=== PATIENT | female | born 1945 | race Caucasian/White ===

== ENCOUNTER → 2016-10-02 | Outpatient (CLI) | payer OTHER ==
--- NOTE | 2016-10-02 13:52 | MA ---
Screening Digital Mammogram With iCAD Analysis Clinical Indications: Routine screening. Technique: Standard cephalocaudal projections are obtained. Digital breast tomosynthesis was performe d in the MLO projection with reconstruction at 1.0 mm slice thickness and composite MLO views reconst ructed. This examination is processed by the iCAD computer aided detection system. Comparison: November 2011 and September 2010. Breast density: Type C: Heterogeneously dense. Findings: CAD was reviewed. No masses, suspicious calcifications or secondary signs of malignancy are seen. There has been no significant change in the appearance of either breast. Impression: Negative mammogram. BI-RADS 1. Recommendation: Routine mammographic screening in one year as long as physical examination is negativ e in this patient with heterogeneously dense breast parenchyma. [facility] will send a result letter to the patient. Negative mammography should not preclude additional workup of a clinically suspicious finding. The patient's information is entered into a reminder system with a target due date for her next mammo gram.
== END ==
LOC: FIMAGING 09:23
DX: Z12.31 Encounter for screening mammogram for malignant neoplasm of breast (principal)
CPT/HCPCS: G0202

== ENCOUNTER 2017-07-11 09:40 | Day surgery (SDC) | payer OTHER ==
[2017-07-11] MEDS ORDERED: ASPIRIN EC 325 MG TAB PO ONE (09:44)
[2017-07-11] MEDS ORDERED: FAMOTIDINE 20 MG/NACL 50 ML IV ONE (09:44)
[2017-07-11] MEDS ORDERED: methylPREDNISolone SOD SUCC 125 MG/2 ML VIAL IVP ONE (09:44)
[2017-07-11] MEDS ORDERED: NS 1,000 ML IV ONE (09:44)
[2017-07-11] MEDS ORDERED: DIAZEPAM 5 MG TAB PO ONE (09:44)
--- NOTE | 2017-07-11 10:05 | CPEKG ---
Heart Rate: 81 RR Interval: 741 P-R Interval: 152 QRSD Interval: 76 QT Interval: 372 QTC Interval: 432 P [place]: 4 QRS [place]: 53 T Wave [place]: 8 EKG Severity - NORMAL ECG - EKG Impression: SINUS RHYTHM Electronically Signed By: Guanakito Prado 11-Jul-2017 17:37:47
--- NOTE | 2017-07-11 10:05 | CPEKG ---
Heart Rate: 81 RR Interval: 741 P-R Interval: 152 QRSD Interval: 76 QT Interval: 372 QTC Interval: 432 P [place]: 4 QRS [place]: 53 T Wave [place]: 8 EKG Severity - NORMAL ECG - EKG Impression: SINUS RHYTHM Electronically Signed By: Guanakito Prado 11-Jul-2017 17:37:47
[2017-07-11 10:18] LABS: PLATELET COUNT 243 10^3/uL (150-400)
[2017-07-11 10:31] LABS: INR 0.96 (0.83-1.16); PROTIME(PATIENT) 12.7 SEC (12.0-15.0)
[2017-07-11] MEDS ORDERED: VERAPAMIL 5 MG/2 ML VIAL ONE (11:55)
[2017-07-11] MEDS ORDERED: HEPARIN 10,000 UNIT/10 ML MDV ONE (11:55)
[2017-07-11] MEDS ORDERED: MIDAZOLAM 2 MG/2 ML VIAL ONE ×2 (11:55)
[2017-07-11] MEDS ORDERED: fentaNYL 100 MCG/2 ML INJ ONE (11:55)
[2017-07-11] MEDS ORDERED: LIDOCAINE 1% 300 MG/30 ML SDV ONE (11:55)
[2017-07-11] MEDS ORDERED: IOPAMIDOL (ISOVUE-370) 150 ML BTL IV ONE ×2 (11:56→13:01)
--- NOTE | 2017-07-11 12:16 | PDPROPOC ---
Sedation Plan of Care Sedation Plan of Care: vital signs stable, mental status noted, patient educated of risks, benefits, alternatives, patient can tolerate sedation ASA Classification: ASA 2 Planned drugs: fentanyl, midazolam Mallampati Score: Class 2 Mallampati Reference Image: Patient passed 3-3-2 rule?: Yes
--- NOTE | 2017-07-11 12:16 | PDHPUP ---
History & Physical Update H&P update statement: This history and physical update is based on an assessment of the patient which was completed after admission or registration (within 24 hours), but prior to the surgery/procedure. H&P update: H&P reviewed & patient examined, no change in patient's condition since H&P completed
[2017-07-11] MEDS ORDERED: ONDANSETRON 4 MG/2 ML VIAL IVP PRN (13:15)
[2017-07-11] MEDS ORDERED: ATROPINE SULFATE 1 MG/10 ML SYR IVP PRN (13:15)
--- NOTE | 2017-07-11 13:29 | PDDXCAT ---
Diagnostic Cath Note - . 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 New onset angina currently [place] Cardiovascular Society class 2/3.) - Procedure Access: right wrist Procedure: left heart catheterization, coronary angiography - Materials Left Heart Cath size: 4F Left Heart Cath materials: JL3.5, JR4.0 - Findings-Left Heart Catheterization LM: Large caliber vessel. Appropriate bifurcation into the left anterior descending and circumflex distributions. Angiographically free of disease. LAD: Large caliber transapical vessel. 2 principal diagonal branches. Long segment that was previously stented involving the proximal and mid vessel. 50% region of in stent restenoses between the 1st and 2nd diagonal branches. 60% long area of disease involving the proximal 1st diagonal branch. LCX: Moderate caliber. Extensively stented in the mid segment. Single bifurcating obtuse marginal branch. 80% lesion noted in the inferior branch of the 1st obtuse marginal. RCA: PDA lesion. Dominant vessel. The PDA is clearly identified. Previously stented in the mid segment. 80% lesion in the mid vessel proximal to the previously stented segment. 70% mid LVEF: Greater than 70%. End-diastolic pressure of 18 mm Hg. Complications: None. Estimated blood loss: <50ml Closure method: TR Band Assessment: 1. Known coronary artery disease with previous stenting of all 3 vascular territories. 2. Current angiogram demonstrating diffuse epicardial coronary disease not involving the proximal LAD associated with preserved left ventricular systolic function. 3. [place] Cardiovascular Society class 2/3 angina. Plan: She will be trialed on medical therapy to include long-acting taking nitrates and potentially ranolazine. Will consider changing from atenolol over to a longer-acting beta emiliano. Depending on clinical course consideration could be given to surgical revascularization. Intervention: None.
[2017-07-11] MEDS ORDERED: ISOSORBIDE DINITRATE 10 MG TAB PO SCH (15:00)
== END 2017-07-11 18:45 | disposition home or self-care (01) ==
LOC: FCATH 09:40
PROVIDERS: ATTEND Internal Medicine Cardiovascular Disease
DX: I25.119 Atherosclerotic heart disease of native coronary artery with unspecified angina pectoris (principal); I10 Essential (primary) hypertension; E78.00 Pure hypercholesterolemia, unspecified; E78.5 Hyperlipidemia, unspecified; F32.9 Major depressive disorder, single episode, unspecified; Z95.5 Presence of coronary angioplasty implant and graft; Z91.041 Radiographic dye allergy status; Z85.118 Personal history of other malignant neoplasm of bronchus and lung
CPT/HCPCS: 93005; 93458; C1769; J1200; J1644; J2250; J3010; Q9967

== ENCOUNTER 2017-11-03 18:16 | Inpatient (IN) | payer OTHER ==
--- NOTE | 2017-11-03 19:06 | EDPHY ---
H & P Time Seen by Provider: 11/03/17 18:54 HPI/ROS: CHIEF COMPLAINT: Right ankle redness for 1 day HISTORY OF PRESENT ILLNESS: History old orthopedic injury in the right ankle. Complains of swelling in the right ankle for 2 days and then redness today. She tells me she thinks it is"a ligament"however she has had previous DVT, has diabetes, says she is having difficulty walking because of pain in that ankle. No recent injury or trauma. No chest pain or shortness of breath. REVIEW OF SYSTEMS: Eye: no change in vision ENT: no sore throat Cardiac: no chest pain or syncope Pulmonary: Not short of breath but still has a little residual cough from her influenza 2 months ago. Abdomen: no vomiting, diarrhea, abdominal pain Musculoskeletal: Diffuse myalgias especially in her back sensory influenza 2 months ago. That is really unchanged. Skin: Rash on her trunk which is redness been there for 2 years, unchanged Neuro: Patient has a chronic headaches since her influenza 2 months ago. Constitutional: no fever : no urinary symptoms A comprehensive 10 point review of systems is otherwise negative aside from elements mentioned in the history of present illness. PAST MEDICAL HISTORY: Includes coronary disease, diabetes, history of lung cancer, patient says she has had a DVT before in the right leg Social history: Here with son and General Appearance: Alert and conversant, cooperative. Eyes: No scleral icterus. ENT, Mouth: Normal mucous membranes. Respiratory: Normal respiratory effort, breath sounds equal, lungs are clear to auscultation. Cardiovascular: Regular rate and rhythm. Gastrointestinal: Abdomen is soft and non tender. Neurological: Alert, face symmetric, normal motor and sensory in extremities. Skin: Warmth and redness on the right ankle inferior and distal to the medial malleolus. No blisters. No lymphangitis. No crepitus. She does have a rash which looks urticarial and red on her trunk which she says has been there for 2 years. Musculoskeletal: No calf tenderness either side. I can range her right ankle. She has tenderness near the right medial malleolus. Psychiatric: Not agitated. Emergency Department course/MDM: CBC, x-ray, ultrasound. Sedimentation rate and CRP. 2021: Results discussed, elevated CRP and sedimentation rate, likely right ankle cellulitis. Admission for hospitalization and IV antibiotics in a patient who can't walk on it, inflammatory markers elevated, has peripheral vascular disease, and diabetes making her high risk candidate for outpatient therapy. Does not have SIRS criteria. IV Ancef 2 g. Smoking Status: Never smoked Constitutional: Initial Vital Signs Temperature (C) 36.5 C 11/03/17 18:34 Heart Rate 92 11/03/17 18:34 Respiratory Rate 18 11/03/17 18:34 Blood Pressure 152/82 H 11/03/17 18:34 O2 Sat (%) 93 11/03/17 18:34 O2 Delivery Mode Room Air Allergies/Adverse Reactions: aspirin Allergy (Verified 11/03/17 18:34) Rash Tetanus Vaccines and Toxoid [Tetanus Vaccines & Toxoid] Allergy (Verified 18:34) Home Medications: Medication Instructions Recorded Amitriptyline HCl [Elavil 100 MG 100 mg PO HS PRN 07/11/17 (*)] Atenolol [Tenormin 100 mg (*)] 100 mg PO HS 07/11/17 Calcium Carbonate [Oyster Shell 500 mg PO HS 07/11/17 Calcium 500 mg (*)] Cholecalciferol Vit D3 [Vitamin D3 1,000 units PO HS 07/11/17 (*)] Lisinopril [Zestril 20 mg (*)] 20 mg PO HS 07/11/17 Temazepam [Restoril 15 MG (*)] 15 mg PO HSPRN PRN 07/11/17 amLODIPine BESYLATE [Norvasc 10 mg 10 mg PO HS 07/11/17 (*)] Baclofen [Baclofen 10 mg (*)] 10 mg PO TID 11/03/17 Clopidogrel Bisulfate [Plavix (*)] 75 mg PO DAILY 11/03/17 Isosorbide Dinitrate [Isosorbide 20 mg PO BIDNITRATE 11/03/17 Dinitrate 20 mg (*)] Medical Decision Making - Diagnostics Imaging Results: Imaging Impressions Ankle X-Ray 11/03/17 19:03 Impression: Negative for acute fracture. Extremity Venous Study 11/03/17 19:03 Impression: No evidence of deep vein thrombosis in the right lower extremity. Results called and discussed with KRIS NEWMAN M.D. on 11/03/2017 at 20:26 X-ray personally interpreted shows old medial malleolar chip, otherwise nothing acute Normal right leg ultrasound per Dr. Jackman at 8:25 p.m. Imaging: Discussed imaging studies w/ banquet server on call Radiologist, I viewed and interpreted images myself Differential Diagnosis: Differential for ankle redness considered including but not limited to DVT, cellulitis, fasciitis, ankle sprain, septic joint. Consult/Admit Bed Type: [place] [id number] - Data Points Laboratory Results: Laboratory Results 11/03/17 19:25 11/03/17 19:25 11/03/17 11/03/17 11/03/17 19:25 19:25 19:25 WBC 8.17 10^3/uL 10^3/uL (3.80-9.50) RBC 3.90 10^6/uL L 10^6/uL (4.18-5.33) Hgb 12.0 g/dL L g/dL (12.6-16.3) Hct 34.4 % L % (38.0-47.0) MCV 88.2 fL fL (81.5-99.8) MCH 30.8 pg pg (27.9-34.1) MCHC 34.9 g/dL g/dL (32.4-36.7) RDW 14.2 % % (11.5-15.2) Plt Count 240 10^3/uL 10^3/uL (150-400) MPV 9.8 fL fL (8.7-11.7) Neut % (Auto) 54.2 % % (39.3-74.2) Lymph % (Auto) 33.3 % % (15.0-45.0) [place] % (Auto) 11.5 % % (4.5-13.0) Eos % (Auto) 0.7 % % (0.6-7.6) Baso % (Auto) 0.1 % L % (0.3-1.7) Nucleat RBC Rel Count 0.0 % % (0.0-0.2) Absolute Neuts (auto) 4.42 10^3/uL 10^3/uL (1.70-6.50) Absolute Lymphs (auto) 2.72 10^3/uL 10^3/uL (1.00-3.00) Absolute Monos (auto) 0.94 10^3/uL H 10^3/uL (0.30-0.80) Absolute Eos (auto) 0.06 10^3/uL 10^3/uL (0.03-0.40) Absolute Basos (auto) 0.01 10^3/uL L 10^3/uL (0.02-0.10) Absolute Nucleated RBC 0.00 10^3/uL 10^3/uL (0-0.01) Immature Gran % 0.2 % % (0.0-1.1) Immature Gran # 0.02 10^3/uL 10^3/uL (0.00-0.10) ESR 58 MM/HR H MM/HR (0-30) Sodium 141 mEq/L mEq/L (135-145) Potassium 4.3 mEq/L mEq/L (3.5-5.2) Chloride 103 mEq/L mEq/L (97-110) Carbon Dioxide 21 mEq/l L mEq/l (22-31) Anion Gap 17 mEq/L H mEq/L (8-16) BUN 26 mg/dL H mg/dL (7-23) Creatinine 0.8 mg/dL mg/dL (0.6-1.0) Estimated GFR > 60 Glucose 198 mg/dL H mg/dL (70-100) Calcium 9.4 mg/dL mg/dL (8.5-10.4) C-Reactive Protein 34.9 mg/L H mg/L (<10.0) Urine Color YELLOW Urine Appearance CLEAR Urine pH 5.0 (5.0-7.5) Ur Specific [place] 1.018 (1.002-1.030) Urine Protein NEGATIVE (NEGATIVE) Urine Ketones TRACE H (NEGATIVE) Urine Blood NEGATIVE (NEGATIVE) Urine Nitrate NEGATIVE (NEGATIVE) Urine Bilirubin NEGATIVE (NEGATIVE) Urine Urobilinogen NEGATIVE EU EU (0.2-1.0) Ur Leukocyte Esterase TRACE H (NEGATIVE) Urine RBC 5-10 /hpf H /hpf (0-3) Urine WBC 3-5 /hpf H /hpf (0-3) Ur Epithelial Cells TRACE /lpf /lpf (NONE-1+) Hyaline Casts 1-5 /lpf /lpf (0-1) Urine Mucus TRACE /lpf /lpf (NONE-1+) Urine Glucose 1+ H (NEGATIVE) Medications Given: Discontinued Medications Cefazolin Sodium (Cefazolin Syringe) 2 gm in 20 mls @ 200 mls/hr IVP EDNOW ONE Stop: 11/03/17 20:50 Last Admin: 11/03/17 20:58 Dose: 20 mls Departure - Departure Disposition: [place] Inpatient Acute Clinical Impression: Cellulitis of right ankle Condition: Good Referrals: Seamus Whatley MD [Primary Care Provider] - As per Instructions
[2017-11-03 19:31] LABS: PLATELET COUNT 240 10^3/uL (150-400)
[2017-11-03] MEDS ORDERED: ceFAZolin 2 GM/DEXTROSE 100 ML IV ONE (20:23)
[2017-11-03] MEDS ORDERED: ceFAZolin 2 GM/SWFI 2 GM/20 ML SYR IVP ONE (20:45)
[2017-11-03] MEDS ORDERED: ONDANSETRON DISINTEGRATING 4 MG TAB PO PRN (21:06)
[2017-11-03] MEDS ORDERED: ACETAMINOPHEN 325 MG TAB PO PRN (21:06)
[2017-11-03] MEDS ORDERED: ONDANSETRON 4 MG/2 ML VIAL IVP PRN (21:06)
[2017-11-03] MEDS ORDERED: TEMAZEPAM 15 MG CAP PO PRN (22:20)
[2017-11-03] MEDS ORDERED: AMITRIPTYLINE HCL 100 MG TAB PO PRN (22:20)
[2017-11-03] MEDS ORDERED: D50W 25 GM/50 ML VIAL IVP PRN (22:28)
[2017-11-03 22:33] VITALS: RESP 16
--- NOTE | 2017-11-03 22:51 | GHP ---
[f rep st] HISTORY AND PHYSICAL DATE OF ADMISSION: 11/03/2017 CHIEF COMPLAINT: Pain of the right foot. HISTORY OF PRESENT ILLNESS: A 72-year-old female with multiple medical comorbidities, who presents a fter 48 hours of increasing discomfort of the left medial ankle with new erythema. The patient endor ses subjective fevers and chills. Endorses nausea, no vomiting. Endorses headache. Endorses loose stools and mild abdominal discomfort. Endorses swelling of her bilateral lower extremities. PAST MEDICAL HISTORY: 1. Coronary artery disease, status post stenting x7. 2. Diabetes. 3. Hypertension. SOCIAL HISTORY: Negative for tobacco, alcohol, or illicit drugs. FAMILY HISTORY: Positive for heart disease. REVIEW OF SYSTEMS: A 10-point review of systems is negative with the exception of that reported in t he HPI. PHYSICAL EXAMINATION: VITAL SIGNS: Blood pressure is 115/60, heart rate 77, respiratory rate 18, 97 % on room air, afebrile at 36.7. GENERAL: This is a very pleasant elderly female lying flat in bed. HEENT: Notable for moist mucous membranes. Eye exam is negative for any icterus. CARDIAC: Regul ar rate and rhythm. PULMONARY: Clear to auscultation bilaterally. GASTROINTESTINAL: Positive isabel l sounds. ABDOMEN: Soft and nontender. MUSCULOSKELETAL: Notable for trace lower extremity edema b ilaterally. No pitting. SKIN: Notable for erythema at the medial malleolus on the right, extending to the upper margin of the ankle, no further. NEUROLOGIC: She is alert and oriented x3. PSYCHIATR IC: She is pleasant and cooperative on interview and examination. DATA: White count 8.1, hematocrit 34.4, platelets of 240. Creatinine 0.8. Ankle x-ray, which I per sonally reviewed and interpreted, shows no acute bony fractures. ASSESSMENT AND PLAN: This is a 72-year-old female with diabetes and vascular disease who presents wi th a painful right foot. 1. Acute cellulitis of the right ankle. We will initiate both scheduled ibuprofen as well as IV cef azolin. Blood cultures have been obtained from the emergency department. An ultrasound performed in the ED confirms no presence of an abscess. We will follow the patient's clinical course on ibuprofe n and antibiotics. 2. Coronary artery disease. We will continue patient's home medication. She is not presenting with any chest pain complaints. 3. Hypertension. Patient's blood pressures are currently normotensive. We will hold her evening bl ood pressure medications as I worry if given, can certainly drop her pressures well below normal. Th is can be re-initiated tomorrow if her blood pressures rebound back to an elevated level. 4. Diabetes. Can cover with sliding scale insulin while inpatient. Will use low-dose lispro. 5. Prophylaxis with Lovenox. 6. Diet: Regular. DISPOSITION: I expect greater than 2 midnights as the patient has multiple medical comorbidities and will likely require IV antibiotics for more than 1 day. Discussed the case with the emergency room physician. Patient will be triaged to the medical-surgical floor for care. /[id number]/MODL
[2017-11-03] MEDS: PANTOPRAZOLE SODIUM 40 MG TAB PO SCH (23:07)
[2017-11-03] MEDS: IBUPROFEN 200 MG TAB PO SCH (23:07)
[2017-11-04] MEDS: IBUPROFEN 200 MG TAB PO SCH ×4 (02:19→10:41)
--- NOTE | 2017-11-04 03:14 | PDMN ---
Medical Necessity Medical necessity: C/M review: est. > 2 MN LOS foer eval and TX of acute and persistent cellulitis of the right ankle requiring ongoing IV Cefazolin, pulse oximetry, comorbid diabetes, hypertension, CAD S/P stenting x 7 per H/P.
[2017-11-04] MEDS ORDERED: ceFAZolin 2 GM/SWFI 2 GM/20 ML SYR IVP SCH (06:00)
[2017-11-04] MEDS ORDERED: ISOSORBIDE DINITRATE 20 MG TAB PO SCH (07:00)
[2017-11-04 07:54] LABS: PLATELET COUNT 223 10^3/uL (150-400)
[2017-11-04] MEDS: INSULIN LISPRO 100 UNIT/ML SC SCH ×2 (08:42→12:30)
[2017-11-04] MEDS: PANTOPRAZOLE SODIUM 40 MG TAB PO SCH (08:43)
[2017-11-04] MEDS ORDERED: ENOXAPARIN 40 MG/0.4 ML SYR SC SCH (09:00)
[2017-11-04] MEDS ORDERED: BACLOFEN 10 MG TAB PO SCH (09:00)
[2017-11-04] MEDS ORDERED: CLOPIDOGREL BISULFATE 75 MG TAB PO SCH (09:00)
--- NOTE | 2017-11-04 11:01 | PDIAF ---
- Diagnosis Diagnosis: cellulitis Code Status: Full Code - Medication Management Discharge Medications: Medications to Continue on Transfer Amitriptyline HCl [Elavil 100 MG (*)] 100 mg PO HS PRN 07/11/17 [Last Taken ] Atenolol [Tenormin 100 mg (*)] 100 mg PO HS 07/11/17 [Last Taken 11/03/17] Calcium Carbonate [Oyster Shell Calcium 500 mg (*)] 500 mg PO HS 07/11/17 [Last Taken 07/10/17] Cholecalciferol Vit D3 [Vitamin D3 (*)] 1,000 units PO HS 07/11/17 [Last Taken 11/02/17] Temazepam [Restoril 15 MG (*)] 15 mg PO HSPRN PRN 07/11/17 [Last Taken 11/02/17] Baclofen [Baclofen 10 mg (*)] 10 mg PO TID 11/03/17 [Last Taken 10/31/17] Clopidogrel Bisulfate [Plavix (*)] 75 mg PO DAILY 11/03/17 [Last Taken 11/03/17] Isosorbide Dinitrate [Isosorbide Dinitrate 20 mg (*)] 20 mg PO BIDNITRATE [Last Taken 11/03/17] Acetaminophen [Tylenol 325mg (*)] 650 mg PO Q4HRS PRN tab 11/04/17 [Last Taken Unknown] Dicloxacillin Sodium 500 mg PO Q6 #20 capsule 11/04/17 [Last Taken Unknown] Ibuprofen [Motrin (*)] 400 mg PO Q4HRS tab 11/04/17 [Last Taken Unknown] Discharge Medications: Refer to the Discharge Home Medication list for PRN reason. PICC Care - Routine: N/A - Orders Services needed: Home Care, Registered Nurse Home Care Face to Face: I certify that this patient was under my care and that I had the required [id number] encounter meeting the encounter requirements on the discharge day. My findings support the fact that the patient is homebound as defined in Home Care Face to Face Continued: CMS Chapter 7 Medicare Benefits Manual 30.1.1 , The condition of the patient is such that there exists a normal inability to leave home and consequently, leaving home would require a considerable and taxing effort. - Follow Up Care Current Providers and Referrals: Seamus Whatley MD [Primary Care Provider] - As per Instructions
[2017-11-04 11:35] VITALS: BP 151/69; PULSE 69; TEMP 97.7; O2SAT 96
--- NOTE | 2017-11-04 11:55 | ASMTLACE ---
CESAR Acuity / Level of Answers: Yes Care: Did the patient have an inpatient admission? # of Emergency department Answers: 1-2 visits in the last 6 months Score: 4 Date Signed: 11/04/2017 11:55 AM Electronically Signed By:Analia Hunter RN
--- NOTE | 2017-11-04 11:55 | ASMTCMCOM ---
CM Note CM Note Notes: Met with patient to review dc plan of care. She is agreeable to [facility] Home Health to check on her lower ankle cellulitis. Address and number confirmed Spoke with Information Resources Director RN Valentina Guajardo to alert her of patient C needs. Referral and orders sent in allscripts. Asked RN to leave report on report line. CM available should other needs arise. Date Signed: 11/04/2017 11:54 AM Electronically Signed By:Analia Hunter RN
--- NOTE | 2017-11-04 13:27 | GDS ---
[f rep st] DISCHARGE SUMMARY DISCHARGE DIAGNOSIS: Right ankle cellulitis. STUDIES AND PROCEDURES DONE: 1. Doppler of the right lower extremity. 2. Right ankle x-ray. PHYSICAL EXAM: GENERAL: The patient is alert. VITAL SIGNS: Afebrile at 36.5, pulse is 69, respira tory rate 16, blood pressure is 151/69. She is saturating greater than 90% on room air. I have seen and evaluated the patient on the day of discharge. HOSPITAL COURSE: The patient is a 72-year-old female who presented to the emergency room complaining of right foot pain. She was evaluated and diagnosed with a right ankle cellulitis. During this hos pitalization, she received IV Ancef. Her condition has significantly improved. Her erythema is almo st completely resolved. Her pain is reduced to the point where she is able to ambulate on her foot i ndependently and her range of motion is completely intact. The patient will be discharged home with dicloxacillin and outpatient followup. She does also have a history of coronary artery disease, as w ell as hypertension and diabetes. Her blood pressure was intermittently labile during this hospitali zation. I have continued her atenolol at the time of disposition but instructed her followup with he r primary care physician regarding her other antihypertensive medications. She is in agreement with this plan. There are no pending studies. I have ordered the patient some home health care for blood pressure management and monitoring as well as further evaluation of her right lower extremity cellul itis. She is in agreement with this plan. DISCHARGE MEDICATIONS: Please refer to EMR form. Again, I have provided a prescription for dicloxac illin and I have held her Norvasc as well as her lisinopril. She is to reinitiate her Norvasc and li sinopril in the future if her blood pressure becomes elevated. FOLLOW UP: Followup will be with her primary care physician, Dr. Seamus Whatley. TIME SPENT: I spent greater than 35 minutes in the care, coordination, and management of this patien t's disposition. /[id number]/MODL
--- NOTE | 2017-11-04 13:53 | ASDISCHSUM ---
Discharge Information Plan Status:Home with Home Health Medically Cleared to Leave:11/03/2017 Discharge Date:11/04/2017 01:00 PM CM D/C Disposition:Home Health Service ADT D/C Disposition:Home Health Service Projected Discharge Date:11/04/2017 11:00 AM Transportation at D/C:Family Discharge Delay Reason: Follow-Up Date:11/04/2017 11:00 AM Discharge Slot: Final Diagnosis: Placement Information Referral Type:*Home Health Care Services Referral ID:[id number] Provider Name:[facility] Care Address 1:[address] [place] [address] Address 2: City:[place] Selection Factors: State:[place] Patient Contact Information Contact Name:JACKELIN Relationship:Son Address: City: [facility] Phone: [facility] Code: Email: Financial Information Financial Class:Medicare Primary Plan Desc:MEDICARE INPATIENT Primary Plan Number:[id number] Secondary Plan Desc:[facility] Secondary Plan Number:[id number] Assessment Information [facility] CM Progress Note CM Note CM Note Notes: Met with patient to review dc plan of care. She is agreeable to [facility] to check on her lower ankle cellulitis. Address and number confirmed Spoke with Chief Engineer Waterworks JHON Guajardo to alert her of patient [facility] needs. Referral and orders sent in allscripts. Asked RN to leave report on report line. CM available should other needs arise. Date Signed: 11/04/2017 11:54 AM Electronically Signed By:Analia Hunter RN LACE LACE Acuity / Level of Answers: Yes Care: Did the patient have an inpatient admission? # of Emergency department Answers: 1-2 visits in the last 6 months Score: 4 Date Signed: 11/04/2017 11:55 AM Electronically Signed By:Analia Hunter RN Case Management Discharge Plan Note Case Management Discharge Discharge Order Complete? Answers: Yes Patient to Obtain Answers: via Family Medications Transportation Arranged Answers: Family/Friends Faxed Final Orders Answers: Yes Notes: [facility] Agency/Facility Transfer Answers: Yes Report Printed & Faxed to Receiving Agency Family Notified Answers: Yes Intervention Information
[2017-11-04] MEDS ORDERED: CHOLECALCIFEROL VIT D3 1,000 UNITS TAB PO SCH (21:00)
[2017-11-04] MEDS ORDERED: CALCIUM CARBONATE 500 MG TAB PO SCH (21:00)
== END 2017-11-04 13:00 | disposition home health service (06) | DRG 603 ==
LOC: F3N 22:33
PROVIDERS: ADMIT Hospitalist; ATTEND Hospitalist
DX: L03.115 Cellulitis of right lower limb (principal); I25.10 Atherosclerotic heart disease of native coronary artery without angina pectoris; E11.9 Type 2 diabetes mellitus without complications; I10 Essential (primary) hypertension; Z95.5 Presence of coronary angioplasty implant and graft; Z85.118 Personal history of other malignant neoplasm of bronchus and lung
CPT/HCPCS: 96374; J0690; J1650; J1815

== ENCOUNTER → 2018-07-15 | Outpatient (CLI) | payer OTHER | LOC: FIMAGING 11:33 | PROVIDERS: ATTEND Thoracic Surgery (Cardiothoracic Vascular Surgery) | DX: Z01.811 Encounter for preprocedural respiratory examination (principal); R07.9 Chest pain, unspecified; H53.8 Other visual disturbances; J95.89 Other postprocedural complications and disorders of respiratory system, not elsewhere classified ==

== ENCOUNTER 2018-07-17 06:03 | Inpatient (IN) | payer OTHER ==
[2018-07-17] MEDS ORDERED: MUPIROCIN 2% 22 GM OINT NS ONE (06:11)
[2018-07-17] MEDS ORDERED: CITRATE DEXTROSE SOLN 500 ML BAG MISC ONE (06:11)
[2018-07-17] MEDS ORDERED: niCARdipine/NACL 200 ML IV ONE (06:11)
[2018-07-17] MEDS ORDERED: LIDOCAINE 1% 2 ML INJ ID PRN (06:11)
[2018-07-17] MEDS ORDERED: ceFAZolin 2 GM/DEXTROSE 100 ML IV ONE (06:11)
[2018-07-17] MEDS ORDERED: LR 1,000 ML IV ONE (06:13)
[2018-07-17] MEDS ORDERED: PROTAMINE SULFATE 50 MG/5 ML VIAL IVP ONE (06:22)
[2018-07-17] MEDS ORDERED: CALCIUM CHLORIDE 1 GM/10 ML INJ ONE ×2 (06:22→06:24)
[2018-07-17] MEDS ORDERED: HEPARIN 10,000 UNIT/10 ML MDV (1,000 UNIT/ML) ONE ×2 (06:23→06:25)
[2018-07-17] MEDS ORDERED: AMIODARONE HCL 150 MG/3 ML VIAL ONE ×2 (06:23→06:25)
[2018-07-17] MEDS ORDERED: DOPamine/DEXTROSE 400 MG/250 ML BAG IV ONE (06:23)
[2018-07-17] MEDS ORDERED: NA BICARBONATE 50 MEQ/50 ML VIAL ONE (06:23)
[2018-07-17] MEDS ORDERED: MILRINONE/DEXTROSE/100 ML BAG IV ONE (06:23)
[2018-07-17] MEDS ORDERED: niCARdipine/NACL/200 ML BAG IV ONE ×2 (06:23→13:18)
[2018-07-17] MEDS ORDERED: ALBUMIN 5% 250 ML BOTTLE IV ONE ×2 (06:24→10:27)
[2018-07-17] MEDS ORDERED: ADENOSINE 6 MG/2 ML VIAL ONE (06:24)
[2018-07-17] MEDS ORDERED: ceFAZolin 1 GM VIAL ONE (06:24)
[2018-07-17] MEDS ORDERED: LIDOCAINE 2% 100 MG/5 ML SYR ONE (06:24)
[2018-07-17] MEDS ORDERED: NITROGLYCERIN/D5W 50 MG/250 ML BOTTLE IV ONE (06:24)
[2018-07-17] MEDS ORDERED: methylPREDNISolone SOD SUCC 1 GM/8 ML VIAL ONE (06:25)
[2018-07-17] MEDS ORDERED: CITRATE DEXTROSE SOLN 500 ML BAG ONE (06:25)
[2018-07-17] MEDS ORDERED: MAGNESIUM SULFATE 1 GM/2 ML VIAL ONE (06:25)
--- NOTE | 2018-07-17 06:34 | PDHPUP ---
History & Physical Update H&P update statement: This history and physical update is based on an assessment of the patient which was completed after admission or registration (within 24 hours), but prior to the surgery/procedure. H&P update: H&P reviewed & patient examined, changes noted (Preop labs notable for A1c of 8.3%; will ask hospitalist to follow postop )
[2018-07-17] MEDS ORDERED: MIDAZOLAM 2 MG/2 ML VIAL IVP ONE (06:48)
--- NOTE | 2018-07-17 06:48 | PDANEPAE ---
ANE History of Present Illness here for cabg ANE Past Medical History - Cardiovascular History Hx Hypertension: Yes Hx Arrhythmias: No Hx Chest Pain: No Hx Coronary Artery / Peripheral Vascular Disease: Yes Hx CHF / Valvular Disease: No Hx Palpitations: No Cardiovascular History Comment: HYPERLIPIDEMIA. HYPERCHOLESTEROLEMIA. CAD WITH STENTS X7. HX OF DVT - Pulmonary History Hx COPD: No Hx Asthma/Reactive Airway Disease: No Hx Recent Upper Respiratory Infection: No Hx Oxygen in Use at Home: No Hx Sleep Apnea: No Sleep Apnea Screening Result - Last Documented: Negative Pulmonary History Comment: HX OF LUNG CA WITH PARTIAL LOBECTOMY 06/1995 - Neurologic History Hx Cerebrovascular Accident: No Hx Seizures: No Hx Dementia: No - Endocrine History Hx Diabetes: Yes Endocrine History Comment: TYPE 2 - Renal History Hx Renal Disorders: Yes Renal History Comment: DYSURIA. FREQUENCY - Liver History Hx Hepatic Disorders: Yes Hepatic History Comment: HX OF HEPATITIS - Neurological & Psychiatric Hx Hx Neurological and Psychiatric Disorders: Yes Neurological / Psychiatric History Comment: DEPRESSION - Cancer History Hx Cancer: Yes Cancer History Comment: LUNG CA WITH LOBECTOMY, NO CHEMO, NO RADIATION - Congenital Disorder History Hx Congenital Disorders: No - GI History Hx Gastrointestinal Disorders: Yes Gastrointestinal History Comment: ABD CRAMPING. IBS - Other Health History Other Health History: WEARS GLASSES. ECZEMA. ARTHRITIS TO HANDS, HIPS AND ANKLE - Chronic Pain History Chronic Pain: Yes (JOINTS, HANDS AND RIGHT HIP) - Surgical History Prior Surgeries: HYSTERECTOMY. APPY. TUMOR REMOVED FROM RIGHT ARM. PARTIAL LOBECTOMY ANE Review of Systems Review of systems is: negative Review of Systems: - Exercise capacity Exercise capacity: >=4 METS METS (RN): 4 METS ANE Patient History - Allergies Allergies/Adverse Reactions: aspirin Allergy (Verified 11/03/17 18:34) Rash codeine Allergy (Verified 07/17/18 06:28) Vomiting Penicillins Allergy (Verified 07/17/18 06:28) Rash Tetanus Vaccines and Toxoid Allergy (Verified 07/17/18 06:28) HAND AND ARM EXTREME SWELLING - Home Medications Home medications: home medication list seen and reviewed Home Medications: Temazepam [Restoril 15 MG (*)] 15 mg PO Q2D@21 07/11/17 [Last Taken 07/12/18] Acetaminophen [Tylenol ES 500 mg (*)] 500 mg PO Q6HRS PRN 07/12/18 [Last Taken 07/10/18] Amitriptyline HCl [Elavil 50 mg (*)] 50 mg PO HS 07/12/18 [Last Taken 07/12/18] Atenolol [Tenormin 50 mg (*)] 50 mg PO HS 07/12/18 [Last Taken 07/16/18] Cetirizine [ZyrTEC 10 mg (*)] 10 mg PO DAILY 07/12/18 [Last Taken 07/16/18 19:00 ] Cholecalciferol Vit D3 [Vitamin D3 (*)] 1,000 units PO DAILY 07/12/18 [Last Taken 07/16/18 08:00] Herbals/Supplements -Info Only 1 ea PO DAILY 07/12/18 [Last Taken 07/10/18] Isosorbide Dinitrate [Isosorbide Dinitrate 10 mg (*)] 10 mg PO BIDNITRATE [Last Taken 07/16/18 08:00] Lisinopril [Zestril 20 mg (*)] 20 mg PO DAILY 07/12/18 [Last Taken 07/16/18 08: 00] [place]-3 Fatty Acids [Fish Oil 1000 mg (*)] 1,000 mg PO DAILY 07/12/18 [Last Taken 07/10/18] amLODIPine BESYLATE [Norvasc 10 mg (*)] 10 mg PO HS 07/12/18 [Last Taken ] metFORMIN HCL [Glucophage 500 mg (*)] 500 mg PO BIDMEAL 07/12/18 [Last Taken 12/26] traZODone [traZODONE 100MG (*)] 100 mg PO HS 07/12/18 [Last Taken 07/08/18] - Smoking Hx Smoking Status: Never smoked - Family Anes Hx Family Hx Anesthesia Complications: NONE ANE Labs/Vital Signs - Vital Signs Vital Signs: reviewed preoperatively; see RN documention for details Height: 152.4 cm Weight: 52.163 kg ANE Physical Exam - Airway Neck exam: FROM Mallampati Score: Class 1 - Pulmonary Pulmonary: no respiratory distress - Cardiovascular Cardiovascular: regular rate and rhythym - ASA Status ASA Status: IV ANE Anesthesia Plan Anesthesia Plan: general endotracheal anesthesia Lines/Monitors: arterial line, central line
[2018-07-17] MEDS ORDERED: fentaNYL 250 MCG/5 ML INJ ONE (07:11)
[2018-07-17] MEDS ORDERED: PROPOFOL/EMULSION 500 MG/50 ML BOTTLE IV ONE (07:11)
[2018-07-17] MEDS ORDERED: PHENYLEPHRINE HCL 50 MG in NS 250 ML IV ONE (07:15)
[2018-07-17] MEDS ORDERED: AMINOCAPROIC ACID 5 GM/20 ML VIAL IV ONE (07:15)
[2018-07-17] MEDS ORDERED: CARDIOPLEGIC SOLUTION 1,052.8 ML PF ONE (07:15)
[2018-07-17] MEDS ORDERED: INSULIN REGULAR HUMAN 100 UNIT in NS 100 ML IV ONE (07:15)
[2018-07-17] MEDS ORDERED: NOREPINEPHRINE BITARTRATE 16 MG in NS 250 ML IV ONE (07:15)
[2018-07-17] MEDS ORDERED: MANNITOL 25% 12.5 GM/50 ML VIAL IVP ONE (07:15)
[2018-07-17] MEDS ORDERED: VERAPAMIL 5 MG, NITROGLYCERIN 2.5 MG, HEPARIN 500 UNIT, SODIUM BICARBONATE 0.2 MEQ in L... MISC ONE (07:15)
[2018-07-17] MEDS ORDERED: ALBUMIN 5% 250 ML IV ONE (07:25)
[2018-07-17] MEDS ORDERED: KETAMINE 200 MG/20 ML VIAL ONE (07:41)
[2018-07-17] MEDS ORDERED: PAPAVERINE HCL 60 MG/2 ML SDV ONE ×2 (07:53→07:55)
[2018-07-17] MEDS ORDERED: PHENYLEPHRINE HCL 100 MCG/ML SYR ONE ×2 (09:45→10:45)
[2018-07-17] MEDS ORDERED: ePHEDrine SULFATE 25 MG/5 ML SYR ONE (09:46)
[2018-07-17] MEDS ORDERED: HYDROmorphONE/DILAUDID 2 MG/ML INJ ONE (09:53)
[2018-07-17] MEDS ORDERED: MAGNESIUM HYDROXIDE 30 ML UDCUP PO PRN (11:20)
[2018-07-17] MEDS ORDERED: BISACODYL 10 MG SUPP PR PRN (11:20)
[2018-07-17] MEDS ORDERED: MEPERIDINE 25 MG/0.5 ML AMP IVP PRN (11:20)
[2018-07-17] MEDS ORDERED: POLYETHYLENE GLYCOL 3350 17 GM PKT PO PRN (11:20)
[2018-07-17] MEDS ORDERED: SODIUM CL NASAL 45 ML BTL EACHNARE PRN (11:20)
[2018-07-17] MEDS ORDERED: LACTULOSE 20 GM/30 ML UDCUP PO PRN (11:20)
[2018-07-17] MEDS ORDERED: CEPACOL LOZENGE PO PRN (11:20)
[2018-07-17] MEDS ORDERED: ACETAMINOPHEN 650 MG SUPP PR PRN (11:20)
[2018-07-17] MEDS ORDERED: PANTOPRAZOLE SODIUM 40 MG VIAL IVP ONE (11:20)
[2018-07-17] MEDS ORDERED: D50W 25 GM/50 ML SYR IVP PRN (11:20)
[2018-07-17] MEDS ORDERED: ONDANSETRON DISINTEGRATING 4 MG TAB PO PRN (11:20)
[2018-07-17] MEDS: POTASSIUM Cl (KCl) 50 ML IV PRN ×2 (12:07→13:11)
[2018-07-17] MEDS ORDERED: NA BICARBONATE 50 MEQ/50 ML VIAL IV ONE (12:30)
[2018-07-17] MEDS: INSULIN REGULAR HUMAN 100 UNIT in NS 100 ML IV SCH ×2 (13:10→14:32)
[2018-07-17] MEDS: NS 1,000 ML IV SCH (13:10)
[2018-07-17] MEDS: ALBUMIN 5% 250 ML IV PRN ×2 (13:48→19:20)
[2018-07-17] MEDS: ceFAZolin 2 GM/DEXTROSE 100 ML IV SCH ×2 (15:07→23:12)
[2018-07-17] MEDS: ONDANSETRON 4 MG/2 ML VIAL IVP PRN ×2 (15:15→22:21)
--- NOTE | 2018-07-17 15:18 | PDMN ---
Medical Necessity Medical necessity: Meets IP criteria as of 07/17/18 CPT 01027 CABG [facility] Ip only procedure
[2018-07-17] MEDS: niCARdipine/NACL 200 ML IV SCH ×2 (16:10→20:35)
[2018-07-17] MEDS: METOCLOPRAMIDE 10 MG/2 ML VIAL IVP PRN (18:26)
[2018-07-17] MEDS: fentaNYL 100 MCG/2 ML INJ IVP PRN ×2 (20:42→22:09)
[2018-07-17] MEDS: MUPIROCIN 2% 22 GM OINT NS SCH (20:44)
--- NOTE | 2018-07-17 23:08 | CPEKG ---
Test Reason : OPEN Blood Pressure : / mmHG Vent. Rate : 092 BPM Atrial Rate : 092 BPM P-R Int : 172 ms QRS Dur : 087 ms QT Int : 400 ms P-R-T Axes : 068 048 018 degrees QTc Int : 495 ms Sinus rhythm Borderline prolonged Qc interval Confirmed by Andrea Simons ([id number]) on 07/17/2018 11:07:55 PM Referred By: Confirmed By:Andrea Simons
[2018-07-18] MEDS: niCARdipine/NACL 200 ML IV SCH ×2 (00:02→03:17)
[2018-07-18] MEDS: fentaNYL 100 MCG/2 ML INJ IVP PRN ×3 (00:04→07:34)
--- NOTE | 2018-07-18 02:12 | GOP ---
DATE OF OPERATION: 07/17/2018 SURGEON: Ifeanyi Fountain MD EMAIL OPERATIONS MANAGER: Laura Du, FANNY. PREOPERATIVE DIAGNOSIS: 1. Unstable angina. 2. Coronary artery disease. POSTOPERATIVE DIAGNOSIS: 1. Unstable angina. 2. Coronary artery disease. PROCEDURE PERFORMED: 1. Triple coronary artery bypass grafting. Summary of grafts: The left internal mammary artery to the left anterior descending, saphenous vein graft from the aorta to marginal 1, saphenous vein graft from the aorta to posterior descending artery. 2. Endoscopic vein harvest from the right leg. FINDINGS: INDICATIONS: The patient is a 73-year-old woman with a history of coronary artery disease and multip le previous stents, who has recently developed progressive and unstable angina. Coronary angiography reveals multivessel coronary artery disease with restenosis of the stent in her LAD. She was recomm ended to undergo surgical revascularization. DESCRIPTION OF PROCEDURE: The patient was taken to the operating room and placed on the operating table in the supine position. After the induction of general anesthesia and single-lumen endotracheal tube intubation, the patien t was prepped and draped sterilely. Saphenous vein was harvested from the leg using a minimally inva sive endoscopic technique while the chest was opened via median sternotomy, and the left internal chuck ana lilia artery was taken down with electrocautery and hemoclips. The patient was next fully heparinized and cannulated with a Sarns 8.0 Soft-Flow aortic cannula as well as a dual-stage venous right atrial cannula. Cardiopulmonary bypass was instituted. The distal vessels were marked for grafting. The cross-clamp was then applied and the heart was arrested with 1 L of [place] solution. The distal PD A was opened. It was anastomosed end-to-side with a vein graft using running 7-0 Prolene. Next, the marginal branch of the circumflex, which was small, was similarly dissected, opened, and then anasto mosed end-to-side to a separate vein graft using running 7-0 Prolene. Lastly, the LAD was opened jus t distal to the stent. It was anastomosed end-to-side to the left internal mammary artery using runn ing 7-0 Prolene. This was tacked to the epicardium and allowed to flow freely. The cross-clamp was then removed and a partial occlusion clamp was placed. The 2 vein grafts were each individually anas tomosed end-to-side to the ascending aorta using running 6-0 Prolene. These were then deaired and al lowed to flow freely. Two ventricular pacing wires were placed. The patient was from [facility] without difficulty. Left, right, and mediastinal chest tubes had been placed. Once off bypass, t he protamine was administered and the patient was decannulated. All the cannulation sites were doubl y secured with Prolene suture and after hemostasis had been achieved, the heart was covered with jose rafael cardium and fat, and the chest was closed with #6 stainless steel wires. Subcutaneous tissue and ski n were closed with running Vicryl suture. The patient tolerated the procedure well. /[id number]/MODL
[2018-07-18] MEDS: traMADol 50 MG TAB PO PRN ×3 (03:38→15:33)
[2018-07-18 04:28] LABS: PLATELET COUNT 141 10^3/uL (150-400)
[2018-07-18] MEDS: ONDANSETRON 4 MG/2 ML VIAL IVP PRN ×2 (05:55→11:16)
--- NOTE | 2018-07-18 06:04 | SOAPPROG ---
SOAP Progress Note Assessment/Plan: POD #1: CABGx3 (CHAMBERS-LAD, SVG-OM1, SVG-PDA), EVH L CAD/unstable angina s/p CABGx3 - Wean Norvasc for MAPs 65, Re-start beta-emiliano - AL/FC out - CTs with output of 495 cc/12 hours - keep until lower output - Transfer to PCU later today Acute blood loss anemia - H/H (8.4/24.7) without signs of active bleeding - Monitor DM 2 (A1c 8.3%) - Hospitalist to manage HTN - Beta-blockers as tolerated - Pre-op STACEY/CCB if BP tolerates Subjective: Having some nausea. Pain well-controlled. Denies SOB. Objective: Vital Signs Temp Pulse Resp BP Pulse Ox 36.4 C 112 H 18 142/50 H 96 07/18/18 00:00 07/18/18 04:55 07/18/18 04:55 07/18/18 04:55 07/18/18 04:55 Laboratory Results 07/18/18 04:00 07/18/18 04:00 07/17/18 07/18/18 07/19/18 05:59 05:59 05:59 Intake Total 1075 Output Total 2225 Balance -1150 Physical Exam - Physical Exam General Appearance: WD/WN, alert, no apparent distress EENT: No scleral icterus (R), No scleral icterus (L) Neck: normal inspection Respiratory: No respiratory distress Cardiac/Chest: tachycardia Abdomen: non-tender, soft, No distended Skin: normal color, warm/dry Extremities: No pedal edema Neuro/Psych: no motor/sensory deficits, alert, normal mood/affect, oriented x 3 ICD10 Worksheet Patient Problems: Problems Problem Status Onset Acute blood loss anemia Acute S/P CABG x 3 Acute ~07/17/18 Stenosis of coronary stent Acute CAD in [place] artery Chronic Type 2 diabetes mellitus Chronic
[2018-07-18] MEDS ORDERED: ATENOLOL 50 MG TAB PO SCH (07:55)
[2018-07-18] MEDS: ceFAZolin 2 GM/DEXTROSE 100 ML IV SCH ×3 (08:01→23:55)
[2018-07-18] MEDS: MUPIROCIN 2% 22 GM OINT NS SCH ×2 (08:35→21:10)
[2018-07-18] MEDS: PANTOPRAZOLE SODIUM 40 MG TAB PO SCH (08:35)
[2018-07-18] MEDS: INSULIN LISPRO 100 UNIT/ML SC SCH ×3 (10:16→17:25)
--- NOTE | 2018-07-18 12:39 | ASMTCASEMG ---
Living Arrangements What is your living Answers: With Spouse arrangement? Who do you live with? Type Of Residence What kind of residence do Answers: House you live in? Discharge Plan Comments Coordination Status Comments Notes: Patient is a 73yo female with a hx of coronary artery disease and multiple previous stents, who has recently developed progressive and unstable angina. Patient is going to surgery for a triple coronary artery bypass grafting. OT/PT/BELLHOP SERVICE CAPTAIN/cardiac rehab evals ordered. D/C plan TBD. CM will follow. Date Signed: 07/18/2018 12:38 PM Electronically Signed By:Christelle Donato LCSW
[2018-07-18] MEDS ORDERED: ALBUMIN 5% 250 ML BOTTLE IV ONE ×2 (13:41→19:32)
[2018-07-18] MEDS ORDERED: ALBUMIN 5% 250 ML IV ONE ×2 (14:30→20:00)
--- NOTE | 2018-07-18 14:57 | PDHOSCONS ---
History and Physical - Chief Complaint Diabetes consult - History of Present Illness 73 y/o female with history of CAD s/p multiple PCIs, HTN, DM2, hyperlipidemia is s/p day 1 CABG x 3 vessels. She reports Hospital medicine is happy to consult and follow the patient regarding her diabetes and management/treatment. Past Medical/Surgical History 1. CABG x 3 vessels (07/17/18) 2. CAD s/p multiple PCIs 3. HTN 4. DM2 5. Hyperlipidemia Family History 1. Heart Disease 2. Cancer 3. HTN History Information - Allergies/Home Medication List Allergies/Adverse Reactions: aspirin Allergy (Verified 11/03/17 18:34) Rash codeine Allergy (Verified 07/17/18 06:28) Vomiting Penicillins Allergy (Verified 07/17/18 06:28) Rash Tetanus Vaccines and Toxoid Allergy (Verified 07/17/18 06:28) HAND AND ARM EXTREME SWELLING Home Medications: Temazepam [Restoril 15 MG (*)] 15 mg PO Q2D@21 07/11/17 [Last Taken 07/12/18] Acetaminophen [Tylenol ES 500 mg (*)] 500 mg PO Q6HRS PRN 07/12/18 [Last Taken 07/10/18] Amitriptyline HCl [Elavil 50 mg (*)] 50 mg PO HS 07/12/18 [Last Taken 07/12/18] Atenolol [Tenormin 50 mg (*)] 50 mg PO HS 07/12/18 [Last Taken 07/16/18] Cetirizine [ZyrTEC 10 mg (*)] 10 mg PO DAILY 07/12/18 [Last Taken 07/16/18 19:00 ] Cholecalciferol Vit D3 [Vitamin D3 (*)] 1,000 units PO DAILY 07/12/18 [Last Taken 07/16/18 08:00] Herbals/Supplements -Info Only 1 ea PO DAILY 07/12/18 [Last Taken 07/10/18] Isosorbide Dinitrate [Isosorbide Dinitrate 10 mg (*)] 10 mg PO BIDNITRATE [Last Taken 07/16/18 08:00] Lisinopril [Zestril 20 mg (*)] 20 mg PO DAILY 07/12/18 [Last Taken 07/16/18 08: 00] [place]-3 Fatty Acids [Fish Oil 1000 mg (*)] 1,000 mg PO DAILY 07/12/18 [Last Taken 07/10/18] amLODIPine BESYLATE [Norvasc 10 mg (*)] 10 mg PO HS 07/12/18 [Last Taken ] metFORMIN HCL [Glucophage 500 mg (*)] 500 mg PO BIDMEAL 07/12/18 [Last Taken 12/26] traZODone [traZODONE 100MG (*)] 100 mg PO HS 07/12/18 [Last Taken 07/08/18] I have personally reviewed and updated: family history, social history, surgical history Past Medical History: See HPI List - Surgical History Reports: coronary bypass surgery Additional surgical history: See HPI list - Family History Positive for: cancer, CAD, hypertension Additional family history: See HPI list - Social History Smoking Status: Never smoked Alcohol Use: None Drug Use: None (Lives with her at home) Review of Systems Review of Systems: Physical Exam Physical Exam: Temp Pulse Resp BP Pulse Ox 36.6 C 82 21 H 96/52 L 98 07/18/18 12:00 07/18/18 12:00 07/18/18 12:00 07/18/18 12:00 07/18/18 12:00 O2 (L/minute) 4 FIO2 (%) 4 Lab Data & Imaging Review 07/18/18 04:00 07/18/18 04:00 WBC 16.06 10^3/uL (3.80-9.50) H 07/18/18 04:00 RBC 2.72 10^6/uL (4.18-5.33) L 07/18/18 04:00 Hgb 8.4 g/dL (12.6-16.3) L 07/18/18 04:00 POC Hgb 8.5 gm/dL (12.6-16.3) L 07/17/18 22:04 Hct 24.7 % (38.0-47.0) L 07/18/18 04:00 POC Hct 25 % (38-47) L 07/17/18 22:04 MCV 90.8 fL (81.5-99.8) 07/18/18 04:00 MCH 30.9 pg (27.9-34.1) 07/18/18 04:00 MCHC 34.0 g/dL (32.4-36.7) 07/18/18 04:00 RDW 13.6 % (11.5-15.2) 07/18/18 04:00 Plt Count 141 10^3/uL (150-400) L 07/18/18 04:00 MPV 10.6 fL (8.7-11.7) 07/18/18 04:00 Neut % (Auto) Not Reported 07/18/18 04:00 Lymph % (Auto) Not Reported 07/18/18 04:00 [place] % (Auto) Not Reported 07/18/18 04:00 Eos % (Auto) Not Reported 07/18/18 04:00 Baso % (Auto) Not Reported 07/18/18 04:00 Nucleat RBC Rel Count Not Reported 07/18/18 04:00 Absolute Neuts (auto) Not Reported 07/18/18 04:00 Absolute Lymphs (auto) Not Reported 07/18/18 04:00 Absolute Monos (auto) Not Reported 07/18/18 04:00 Absolute Eos (auto) Not Reported 07/18/18 04:00 Absolute Basos (auto) Not Reported 07/18/18 04:00 Absolute Nucleated RBC Not Reported 07/18/18 04:00 Immature Gran % Not Reported 07/18/18 04:00 Seg Neutrophils % 80.8 % 07/18/18 04:00 Band Neutrophils % 11.1 % 07/18/18 04:00 Lymphocytes % 3.0 % 07/18/18 04:00 Monocytes % 4.1 % 07/18/18 04:00 Eosinophils % 0.0 % 07/18/18 04:00 Basophils % 0.0 % 07/18/18 04:00 Metamyelocytes % 1.0 % 07/18/18 04:00 Myelocytes % 0.0 % 07/18/18 04:00 Promyelocytes % 0.0 % 07/18/18 04:00 Blast Cells % 0.0 % 07/18/18 04:00 Immature Gran # Not Reported 07/18/18 04:00 Absolute Seg Neuts 12.98 10^3/uL (1.70-6.50) H 07/18/18 04:00 Absolute Band Neuts 1.78 10^3/uL (0.00-0.70) H 07/18/18 04:00 Absolute Lymphocytes 0.48 10^3/uL (1.00-3.00) L 07/18/18 04:00 Absolute Monocytes 0.66 10^3/uL (0.30-0.80) 07/18/18 04:00 Absolute Eosinophils 0.00 10^3/uL (0.03-0.40) L 07/18/18 04:00 Absolute Basophils 0.00 10^3/uL (0.02-0.10) L 07/18/18 04:00 Absolute Metamyelocyte 0.16 10^3/mL (0.00-0.00) H 07/18/18 04:00 Absolute Myelocytes 0.00 10^3/mL (0.00-0.00) 07/18/18 04:00 Absolute Promyelocytes 0.00 10^3/uL (0.00-0.00) 07/18/18 04:00 Absolute Plasma Cells 0.00 10^3/uL (0.00-0.00) 07/18/18 04:00 Nucleated RBCs 0 /100 WBC (0-0) 07/18/18 04:00 Absolute Blast Cells 0.00 10^3/uL (0.00-0.00) 07/18/18 04:00 Plasma Cells % 0.0 % 07/18/18 04:00 Toxic Granulation PRESENT H 07/18/18 04:00 Platelet Estimate ADEQUATE (ADEQ) 07/18/18 04:00 Hypochromasia 1+ H 07/18/18 04:00 Basophilic Stippling 1+ H 07/18/18 04:00 Target Cells 1+ H 07/18/18 04:00 Smear Review By Jaqueline VILLARREAL MD 07/18/18 04:00 POC Blood Source ARTERIAL 07/17/18 11:53 Puncture Site ARTERIAL LINE 07/17/18 14:15 Patient Temperature 37.0 DEGREES 07/17/18 14:15 pCO2 41 mmHg (34-38) H 07/17/18 14:15 pO2 92 mmHg (65-75) H 07/17/18 14:15 Total CO2 21 mEq/L (23-27) L 07/17/18 14:15 POC ABG pH 7.26 (7.35-7.45) L 07/17/18 11:53 ABG pH 7.31 (7.35-7.45) L 07/17/18 14:15 POC ABG pCO2 43 mmHg (34-38) H 07/17/18 11:53 POC ABG pO2 211 mmHg (65-75) H 07/17/18 11:53 ABG PO2/FiO2 Ratio 230 RATIO 07/17/18 14:15 POC ABG HCO3 20 mEq/L (22-26) L 07/17/18 11:53 ABG HCO3 20 mEq/L (22-26) L 07/17/18 14:15 POC ABG Total CO2 21 mEq/L (23-27) L 07/17/18 11:53 POC ABG O2 Sat 100 % (92-95) H 07/17/18 11:53 ABG O2 Saturation 95 % (92-95) 07/17/18 14:15 POC ABG Base Excess -8.0 mEq/L (-2.5-2.5) L 07/17/18 11:53 ABG Base Excess -5.5 mEq/L (-2.5-2.5) L 07/17/18 14:15 O2 Concentration % 40 % (0-100) 07/17/18 14:15 Actual Respiration Rate 20 07/17/18 14:15 POC FiO2 100.0000 % (0-100) 07/17/18 11:53 End Tidal CO2 37 07/17/18 14:15 PEEP 4 07/17/18 14:15 Pressure Support 10 07/17/18 14:15 CPAP YES 07/17/18 14:15 POC Sodium 144 mEq/L (135-145) 07/17/18 22:04 Sodium 137 mEq/L (135-145) 07/18/18 04:00 POC Potassium 4.3 mEq/L (3.3-5.0) 07/17/18 22:04 Potassium 4.3 mEq/L (3.3-5.0) 07/18/18 04:00 POC Chloride 107 mEq/L (97-110) 07/17/18 22:04 Chloride 104 mEq/L (97-110) 07/18/18 04:00 Carbon Dioxide 27 mEq/l (22-31) 07/18/18 04:00 Anion Gap 6 mEq/L (6-14) 07/18/18 04:00 POC BUN 8 mg/dL (7-23) 07/17/18 22:04 BUN 10 mg/dL (7-23) 07/18/18 04:00 Creatinine 0.5 mg/dL (0.6-1.0) L 07/18/18 04:00 POC Creatinine 0.6 mg/dL (0.6-1.0) 07/17/18 22:04 Estimated GFR > 60 07/18/18 04:00 Glucose 114 mg/dL (70-100) H 07/18/18 04:00 POC Glucose 148 mg/dL (70-100) H 07/18/18 11:53 Calcium 8.7 mg/dL (8.5-10.4) 07/18/18 04:00 Patient ABO/Rh B POSITIVE 07/15/18 11:30 Antibody Screen NEGATIVE 07/15/18 11:30 Crossmatch IS Only See Detail 07/15/18 11:30 Assessment & Plan Plan: 73 y/o female with recent CABG x 3 d/t CAD and unstable angina is hemodynamically stable. Hospital medicine to follow and manage her diabetes per the request of MARITA Saleh. 1. Diabetes: hold Metformin for at least 48 hours. Will utilize insulin sliding scale
[2018-07-18] MEDS: METOCLOPRAMIDE 10 MG/2 ML VIAL IVP PRN (15:19)
--- NOTE | 2018-07-18 16:19 | PDHOSCONS ---
History and Physical - Chief Complaint Diabetes consult - History of Present Illness 73 y/o female with recent CABG x 3 vessels (07/17/2018). Hospital medicine has been asked to consult and manage her diabetes. Today was my first encounter with the pt. She was sitting upright in a chair, noticeably groggy but easy to arouse. She reports not sleeping well, feeling nauseous, and "doped up." Endorses surgical pain. Denies chest pains, SOB, vomiting, fevers, chills. She is unsure what her A1c is (it is 8.3%), she only takes Metformin at home for her diabetes. Hospital medicine is happy to consult and manage her diabetes during her inpatient stay. Past Medical/Surgical History 1. Unstable angina 2. CAD s/p multiple PCIs 3. HTN 4. DM2 5. Depression 6. Lung CA in 1994 with Lobectomy 7. Hyperlipidemia Family History 1. Heart disease 2. Cancer 3. HTN History Information - Allergies/Home Medication List Allergies/Adverse Reactions: aspirin Allergy (Verified 11/03/17 18:34) Rash codeine Allergy (Verified 07/17/18 06:28) Vomiting Penicillins Allergy (Verified 07/17/18 06:28) Rash Tetanus Vaccines and Toxoid Allergy (Verified 07/17/18 06:28) HAND AND ARM EXTREME SWELLING Home Medications: Temazepam [Restoril 15 MG (*)] 15 mg PO Q2D@21 07/11/17 [Last Taken 07/12/18] Acetaminophen [Tylenol ES 500 mg (*)] 500 mg PO Q6HRS PRN 07/12/18 [Last Taken 07/10/18] Amitriptyline HCl [Elavil 50 mg (*)] 50 mg PO HS 07/12/18 [Last Taken 07/12/18] Atenolol [Tenormin 50 mg (*)] 50 mg PO HS 07/12/18 [Last Taken 07/16/18] Cetirizine [ZyrTEC 10 mg (*)] 10 mg PO DAILY 07/12/18 [Last Taken 07/16/18 19:00 ] Cholecalciferol Vit D3 [Vitamin D3 (*)] 1,000 units PO DAILY 07/12/18 [Last Taken 07/16/18 08:00] Herbals/Supplements -Info Only 1 ea PO DAILY 07/12/18 [Last Taken 07/10/18] Isosorbide Dinitrate [Isosorbide Dinitrate 10 mg (*)] 10 mg PO BIDNITRATE [Last Taken 07/16/18 08:00] Lisinopril [Zestril 20 mg (*)] 20 mg PO DAILY 07/12/18 [Last Taken 07/16/18 08: 00] [place]-3 Fatty Acids [Fish Oil 1000 mg (*)] 1,000 mg PO DAILY 07/12/18 [Last Taken 07/10/18] amLODIPine BESYLATE [Norvasc 10 mg (*)] 10 mg PO HS 07/12/18 [Last Taken ] metFORMIN HCL [Glucophage 500 mg (*)] 500 mg PO BIDMEAL 07/12/18 [Last Taken 12/26] traZODone [traZODONE 100MG (*)] 100 mg PO HS 07/12/18 [Last Taken 07/08/18] I have personally reviewed and updated: family history, medical history, social history, surgical history Past Medical History: See HPI List - Surgical History Reports: coronary bypass surgery Additional surgical history: See HPI list - Family History Positive for: cancer, CAD, hypertension Additional family history: See HPI list - Social History Smoking Status: Never smoked Alcohol Use: None Drug Use: None (Lives with her at home) Additional social history: Lives at home with Review of Systems Review of Systems: ROS: 10pt was reviewed & negative except for what was stated in HPI & below Constitutional: Reports: weakness EENMT: Reports: no symptoms Cardiac: Reports: no symptoms Respiratory: Reports: no symptoms Gastrointestinal: Reports: nausea Genitourinary: Reports: no symptoms Muscolosketal: Reports: no symptoms Skin: Reports: no symptoms Neurological: Reports: no symptoms Hematologic/Lymphatic: Reports: no symptoms Immunologic/Allergy: Reports: other (See allergy list) Physical Exam Physical Exam: Lab data and imaging reviewed WBC: 07/17 13.99 to 07/18 16.06 Hgb: 07/17 8.5 to 07/18 8.4 Hct: 07/17 25.9 to 07/18 24.7 07/18 CXR: Interval extubation, no significant changes in atelectasis 07/17 EKG: SR, prolonged Qc interval Temp Pulse Resp BP Pulse Ox 36.6 C 81 14 92/53 L 96 07/18/18 12:00 07/18/18 15:31 07/18/18 15:00 07/18/18 15:31 07/18/18 15:00 O2 (L/minute) 3 FIO2 (%) 4 Constitutional: no apparent distress, appears nourished, other (Appears tired) Eyes: PERRL, anicteric sclera, EOMI Ears, Nose, Mouth, Throat: moist mucous membranes, hearing normal, ears appear normal, no oral mucosal ulcers Cardiovascular: regular rate and rhythym, no murmur, rub, or gallop, No edema Peripheral Pulses: 1+: dorsalis-pedis (R) (Radial +1), dorsalis-pedis (L) ( Radial +1) Respiratory: no respiratory distress, no rales or rhonchi, clear to auscultation Gastrointestinal: normoactive bowel sounds, soft, non-tender abdomen, no palpable masses Genitourinary: no bladder fullness, no bladder tenderness Skin: warm, normal color, no rashes or abrasions, no fluctuance, no induration, other (Surgical incision is C/D/I), No mottled Musculoskeletal: full muscle strength, no muscle tenderness, normal joint ROM, no joint effusions Neurologic: AAOx3, sensation intact bilaterally, CN II-XII Intact Psychiatric: interacting appropriately, not anxious, not encephalopathic, thought process linear Lymph, Heme, Immunologic: no cervical LAD, no supraclavicular LAD Lab Data & Imaging Review 07/18/18 04:00 07/18/18 04:00 WBC 16.06 10^3/uL (3.80-9.50) H 07/18/18 04:00 RBC 2.72 10^6/uL (4.18-5.33) L 07/18/18 04:00 Hgb 8.4 g/dL (12.6-16.3) L 07/18/18 04:00 POC Hgb 8.5 gm/dL (12.6-16.3) L 07/17/18 22:04 Hct 24.7 % (38.0-47.0) L 07/18/18 04:00 POC Hct 25 % (38-47) L 07/17/18 22:04 MCV 90.8 fL (81.5-99.8) 07/18/18 04:00 MCH 30.9 pg (27.9-34.1) 07/18/18 04:00 MCHC 34.0 g/dL (32.4-36.7) 07/18/18 04:00 RDW 13.6 % (11.5-15.2) 07/18/18 04:00 Plt Count 141 10^3/uL (150-400) L 07/18/18 04:00 MPV 10.6 fL (8.7-11.7) 07/18/18 04:00 Neut % (Auto) Not Reported 07/18/18 04:00 Lymph % (Auto) Not Reported 07/18/18 04:00 [place] % (Auto) Not Reported 07/18/18 04:00 Eos % (Auto) Not Reported 07/18/18 04:00 Baso % (Auto) Not Reported 07/18/18 04:00 Nucleat RBC Rel Count Not Reported 07/18/18 04:00 Absolute Neuts (auto) Not Reported 07/18/18 04:00 Absolute Lymphs (auto) Not Reported 07/18/18 04:00 Absolute Monos (auto) Not Reported 07/18/18 04:00 Absolute Eos (auto) Not Reported 07/18/18 04:00 Absolute Basos (auto) Not Reported 07/18/18 04:00 Absolute Nucleated RBC Not Reported 07/18/18 04:00 Immature Gran % Not Reported 07/18/18 04:00 Seg Neutrophils % 80.8 % 07/18/18 04:00 Band Neutrophils % 11.1 % 07/18/18 04:00 Lymphocytes % 3.0 % 07/18/18 04:00 Monocytes % 4.1 % 07/18/18 04:00 Eosinophils % 0.0 % 07/18/18 04:00 Basophils % 0.0 % 07/18/18 04:00 Metamyelocytes % 1.0 % 07/18/18 04:00 Myelocytes % 0.0 % 07/18/18 04:00 Promyelocytes % 0.0 % 07/18/18 04:00 Blast Cells % 0.0 % 07/18/18 04:00 Immature Gran # Not Reported 07/18/18 04:00 Absolute Seg Neuts 12.98 10^3/uL (1.70-6.50) H 07/18/18 04:00 Absolute Band Neuts 1.78 10^3/uL (0.00-0.70) H 07/18/18 04:00 Absolute Lymphocytes 0.48 10^3/uL (1.00-3.00) L 07/18/18 04:00 Absolute Monocytes 0.66 10^3/uL (0.30-0.80) 07/18/18 04:00 Absolute Eosinophils 0.00 10^3/uL (0.03-0.40) L 07/18/18 04:00 Absolute Basophils 0.00 10^3/uL (0.02-0.10) L 07/18/18 04:00 Absolute Metamyelocyte 0.16 10^3/mL (0.00-0.00) H 07/18/18 04:00 Absolute Myelocytes 0.00 10^3/mL (0.00-0.00) 07/18/18 04:00 Absolute Promyelocytes 0.00 10^3/uL (0.00-0.00) 07/18/18 04:00 Absolute Plasma Cells 0.00 10^3/uL (0.00-0.00) 07/18/18 04:00 Nucleated RBCs 0 /100 WBC (0-0) 07/18/18 04:00 Absolute Blast Cells 0.00 10^3/uL (0.00-0.00) 07/18/18 04:00 Plasma Cells % 0.0 % 07/18/18 04:00 Toxic Granulation PRESENT H 07/18/18 04:00 Platelet Estimate ADEQUATE (ADEQ) 07/18/18 04:00 Hypochromasia 1+ H 07/18/18 04:00 Basophilic Stippling 1+ H 07/18/18 04:00 Target Cells 1+ H 07/18/18 04:00 Smear Review By Jaqueline VILLARREAL MD 07/18/18 04:00 POC Blood Source ARTERIAL 07/17/18 11:53 Puncture Site ARTERIAL LINE 07/17/18 14:15 Patient Temperature 37.0 DEGREES 07/17/18 14:15 pCO2 41 mmHg (34-38) H 07/17/18 14:15 pO2 92 mmHg (65-75) H 07/17/18 14:15 Total CO2 21 mEq/L (23-27) L 07/17/18 14:15 POC ABG pH 7.26 (7.35-7.45) L 07/17/18 11:53 ABG pH 7.31 (7.35-7.45) L 07/17/18 14:15 POC ABG pCO2 43 mmHg (34-38) H 07/17/18 11:53 POC ABG pO2 211 mmHg (65-75) H 07/17/18 11:53 ABG PO2/FiO2 Ratio 230 RATIO 07/17/18 14:15 POC ABG HCO3 20 mEq/L (22-26) L 07/17/18 11:53 ABG HCO3 20 mEq/L (22-26) L 07/17/18 14:15 POC ABG Total CO2 21 mEq/L (23-27) L 07/17/18 11:53 POC ABG O2 Sat 100 % (92-95) H 07/17/18 11:53 ABG O2 Saturation 95 % (92-95) 07/17/18 14:15 POC ABG Base Excess -8.0 mEq/L (-2.5-2.5) L 07/17/18 11:53 ABG Base Excess -5.5 mEq/L (-2.5-2.5) L 07/17/18 14:15 O2 Concentration % 40 % (0-100) 07/17/18 14:15 Actual Respiration Rate 20 07/17/18 14:15 POC FiO2 100.0000 % (0-100) 07/17/18 11:53 End Tidal CO2 37 07/17/18 14:15 PEEP 4 07/17/18 14:15 Pressure Support 10 07/17/18 14:15 CPAP YES 07/17/18 14:15 POC Sodium 144 mEq/L (135-145) 07/17/18 22:04 Sodium 137 mEq/L (135-145) 07/18/18 04:00 POC Potassium 4.3 mEq/L (3.3-5.0) 07/17/18 22:04 Potassium 4.3 mEq/L (3.3-5.0) 07/18/18 04:00 POC Chloride 107 mEq/L (97-110) 07/17/18 22:04 Chloride 104 mEq/L (97-110) 07/18/18 04:00 Carbon Dioxide 27 mEq/l (22-31) 07/18/18 04:00 Anion Gap 6 mEq/L (6-14) 07/18/18 04:00 POC BUN 8 mg/dL (7-23) 07/17/18 22:04 BUN 10 mg/dL (7-23) 07/18/18 04:00 Creatinine 0.5 mg/dL (0.6-1.0) L 07/18/18 04:00 POC Creatinine 0.6 mg/dL (0.6-1.0) 07/17/18 22:04 Estimated GFR > 60 07/18/18 04:00 Glucose 114 mg/dL (70-100) H 07/18/18 04:00 POC Glucose 148 mg/dL (70-100) H 07/18/18 11:53 Calcium 8.7 mg/dL (8.5-10.4) 07/18/18 04:00 Patient ABO/Rh B POSITIVE 07/15/18 11:30 Antibody Screen NEGATIVE 07/15/18 11:30 Crossmatch IS Only See Detail 07/15/18 11:30 Assessment & Plan Plan: 73 y/o female with history of CAD, HTN, HLD, depression s/p POD #1 CABG x 3 vessels, extubated today. Following her diabetes. 1. S/P CABG x 3: hemodynamically stable. Per Dr. Fountain, -Wean Norvasc for MAPs 65; re-start beta-emiliano -AL/FC out -CTs with output of 495 cc/12 hours - keep until lower output -Transfer to PCU later today 2. Type 2 Diabetes: last glucose 148. A1c 8.3%. Will hold Metformin for at least 48 hours. Will be on an insulin sliding scale until PO intake improves. 3. HTN: continue home medications as tolerated 4. Anemia: 8.4/24.7, asymptomatic. No active signs of bleeding. Continue to monitor closely. 5. Leukocytosis: 07/17 WBC 13.99 07/18 16.06. I suspect this is a reactive inflammation d/t surgery. Afebrile. She is on Ancef. Continue to monitor closely.
[2018-07-18] MEDS ORDERED: KETOROLAC 15 MG/1 ML SDV IVP PRN (18:21)
--- NOTE | 2018-07-18 19:12 | HOSPPROG ---
Hospitalist Progress Note Assessment/Plan: Internal Medicine asked to consult by Dr. Fountain for diabetes management. Patient seen and examined. Discussed with MANAGER CAFE Erika Carey and agree with plan. Diabetes - marginal control as outpatient with last HgA1c 8.3 She takes metformin at home. This will be held until her PO intake increases. Until then suspect she will be adequately controlled on Sliding Scale insulin. Objective: Vital Signs Temp Pulse Resp BP Pulse Ox 36.6 C 76 26 H 102/51 L 92 07/18/18 16:00 07/18/18 17:01 07/18/18 17:01 07/18/18 17:01 07/18/18 17:01 Laboratory Results 07/18/18 04:00 07/18/18 04:00 07/17/18 07/18/18 07/19/18 05:59 05:59 05:59 Intake Total 2422.3 1200 Output Total 2225 700 Balance 197.3 500 - Physical Exam Constitutional: no apparent distress, appears nourished, not in pain Cardiovascular: regular rate and rhythym, no murmur, rub, or gallop Respiratory: no respiratory distress, no rales or rhonchi, clear to auscultation Gastrointestinal: normoactive bowel sounds, soft, non-tender abdomen, no palpable masses Skin: no rashes or abrasions, no fluctuance, no induration Neurologic: AAOx3, sensation intact bilaterally Psychiatric: not anxious, not encephalopathic, thought process linear, flat affect ICD10 Worksheet Patient Problems: Problems Problem Status Onset Acute blood loss anemia Acute S/P CABG x 3 Acute ~07/17/18 Type 2 diabetes mellitus Chronic Stenosis of coronary stent Acute CAD in [place] artery Chronic
[2018-07-18] MEDS: AMITRIPTYLINE HCL 50 MG TAB PO SCH (20:00)
[2018-07-18] MEDS: SENNOSIDES/DOCUSATE SODIUM TAB PO SCH (20:00)
[2018-07-18] MEDS ORDERED: traZODone 100 MG TAB PO SCH (21:00)
[2018-07-18] MEDS ORDERED: DOPamine/DEXTROSE 400 MG/250 ML BAG IV ONE (21:15)
[2018-07-18] MEDS ORDERED: INSULIN REGULAR HUMAN 100 UNIT/ML UNIT ONE (22:10)
[2018-07-18] MEDS ORDERED: D50W 25 GM/50 ML VIAL IV ONE (22:15)
[2018-07-18] MEDS ORDERED: EPINEPHrine 1 MG/10 ML SYR IVP ONE (22:28)
[2018-07-18] MEDS ORDERED: ROCURONIUM 100 MG/10 ML VIAL IV ONE (22:30)
[2018-07-18] MEDS ORDERED: ETOMIDATE 40 MG/20 ML INJ IV ONE (22:30)
[2018-07-18] MEDS ORDERED: SODIUM BICARBONATE 50 MEQ/50 ML SYR ONE (22:33)
[2018-07-18] MEDS ORDERED: NOREPINEPHRINE BITARTRATE 4 MG in NS 500 ML IV SCH (23:00)
[2018-07-19] MEDS ORDERED: DEXMEDETOMIDINE HCL 400 MCG in NS 100 ML IV SCH (00:30)
[2018-07-19] MEDS ORDERED: INSULIN REGULAR HUMAN 100 UNIT/ML UNIT IV ONE (00:45)
--- NOTE | 2018-07-19 00:47 | EDPHY ---
Inpatient Procedure Narrative: I was called to the intensive care unit for patient in respiratory distress requiring intubation. On arrival at found the patient being bag-valve ventilated by respiratory therapy. She was hypoxemic with saturations in the low 80s. Patient is also noted to be hypotensive. Patient is status post open heart surgery earlier today. Cardiothoracic surgeon is on their way. Indication for the procedure was hypoxemia respiratory distressed. The patient was preoxygenated with 100% oxygen by face mask and nasal cannula. The patient was sedated with etomidate, 20 mg and paralyzed with rocuronium, 80 mg. The patient was orally endotracheally intubated under direct visualization with a 7.5 ETT. Tracheal intubation was confirmed with misting on the tube; breath sounds were auscultated equally bilaterally; appropriate color change with [place] End Tidal CO2 detector, capnography waveform is appropriate, oxygen saturation after procedure is 96%. Chest X-ray shows ETT in good position. The procedure was performed by myself. I Remained in the room until the CT surgeon arrived. Patient's oxygenation improved. Patient currently on dopamine 10.
[2018-07-19] MEDS ORDERED: PROPOFOL/EMULSION 1,000 MG/100 ML BOTTLE IV ONE (01:29)
[2018-07-19] MEDS: FUROSEMIDE 100 MG in D5W 100 ML IV SCH ×3 (01:38→13:01)
[2018-07-19] MEDS: PROPOFOL/EMULSION 100 ML IV SCH ×2 (01:38→13:01)
[2018-07-19] MEDS: INSULIN LISPRO 100 UNIT/ML SC SCH ×2 (01:43→08:02)
[2018-07-19] MEDS ORDERED: ROCURONIUM 100 MG/10 ML VIAL ONE (01:46)
[2018-07-19] MEDS ORDERED: ETOMIDATE 40 MG/20 ML INJ ONE (01:51)
--- NOTE | 2018-07-19 06:45 | SOAPPROG ---
SOAP Progress Note Assessment/Plan: POD #1: CABGx3 ([place]-LAD, SVG-OM1, SVG-PDA), EVH L CAD/unstable angina s/p CABGx3 - Wean pressors as tolerated - Continue AL/FC - CTs to remain while on positive pressure ventilation - ASA/stain/BB for secondary prevention when appropriate Post-operative hypotension likely secondary to beta-emiliano use - Wean dopamine and Levophed as tolerated Acute hypoxic respiratory failure - FIO2 40% - Wean vent as tolerated Acute oliguric renal failure secondary to hypotension - Nephrology consult ordered Acute blood loss anemia - s/p 1U PRBC DM 2 (A1c 8.3%) - Insulin gtt - Further mgmt as per hospitalist HTN - Will allow permissive hypertension, anti-hypertensives when appropriate DVT prophylaxis - SCDs Subjective: Sedated on ventilator. Objective: Vital Signs Temp Pulse Resp BP Pulse Ox 36.6 C 76 18 128/53 H 96 07/19/18 05:00 07/19/18 05:00 07/19/18 05:00 07/19/18 05:00 07/19/18 05:00 Laboratory Results 07/19/18 03:50 07/19/18 03:50 07/18/18 07/19/18 07/20/18 05:59 05:59 05:59 Intake Total 2422.3 2415 Output Total 2225 975 Balance 197.3 1440 Physical Exam - Physical Exam General Appearance: no apparent distress EENT: ET tube Neck: normal inspection Respiratory: No respiratory distress Cardiac/Chest: regular rate, rhythm Abdomen: non-tender, soft, No distended Skin: normal color, warm/dry Extremities: No pedal edema Neuro/Psych: other (sedated on vent) ICD10 Worksheet Patient Problems: Problems Problem Status Onset Acute blood loss anemia Acute S/P CABG x 3 Acute ~07/17/18 Stenosis of coronary stent Acute CAD in [place] artery Chronic Type 2 diabetes mellitus Chronic
[2018-07-19] MEDS ORDERED: INSULIN REGULAR HUMAN 100 UNIT in NS 100 ML IV SCH (07:45)
[2018-07-19] MEDS ORDERED: D5W 1,000 ML IV SCH (07:45)
[2018-07-19] MEDS ORDERED: D50W 25 GM/50 ML SYR IVP PRN (07:45)
[2018-07-19] MEDS: SENNOSIDES/DOCUSATE SODIUM TAB PO SCH (08:03)
[2018-07-19] MEDS: PANTOPRAZOLE SODIUM 40 MG TAB PO SCH (08:03)
[2018-07-19] MEDS: PANTOPRAZOLE SODIUM 40 MG VIAL IVP SCH (09:43)
[2018-07-19] MEDS: NS 1,000 ML IV SCH (09:45)
[2018-07-19] MEDS: MUPIROCIN 2% 22 GM OINT NS SCH (09:47)
[2018-07-19] MEDS ORDERED: POTASSIUM Cl (KCl) 20 MEQ/50 ML BAG IV ONE (12:44)
[2018-07-19] MEDS ORDERED: POTASSIUM Cl (KCl) 50 ML IV ONE (14:15)
--- NOTE | 2018-07-19 15:15 | PDCONSULT ---
Digital Media Associate Note: Assessment/Plan: SARAH: in setting of hypotension and then shock requiring pressors, almost certainly ATN given course, was 0.6 post-op and now up to 2.7. Lytes ok, nonoliguric with Lasix ggt. - No emergent need for HD, will continue to monitor daily for HD needs and recovery. - Will d/c all nephrotoxic medications. - Will check urine studies, CK and renal US. - Avoid hypotension and nephrotoxins. - Expect soon recovery with improving BP. Shock: pt on pressors, being weaned down today. Hypokalemia: K down to 3.7 on Lasix ggt, will give a small dose replacement and continue to monitor and replace cautiously as needed. Lactic acidosis: Lactate 2.7, now BP supported, will continue to monitor. Anemia: Hgb stable at 9.5 s/p CABG, will continue to monitor, no need for epo. Thank you for the interesting consult. Nephrology will continue to follow, please call if you have any additional questions or concerns. H & P Stated Complaint: SARAH Time Seen by Provider: 07/17/18 06:00 HPI/ROS: HPI: Ms. Portillo is a 73 yo F with h/o HTN, DM, CAD who was admitted for 3v CABG, which was done on 07/17/18. Yesterday am her Cr was stable at 0.6, which is her baseline. However, through the day she became increasingly hypotensive and required pressors, then required intubation last night and sent to ICU. Her Cr yesterday evening increased to 1.6 and has slowly increased since then, now up to 2.7. Her K was initially high but she was started on a Lasix ggt, and now K is 3.7. She is having UOP about 20-25ml/hr. She is now having decreasing pressor requirements today. ROS: unable to obtain 2/2 clinical condition Source: Family, RN/MD - Personal History Tetanus Vaccine Date: allergic - Medical/Surgical History Hx Asthma: No Hx Chronic Respiratory Disease: Yes Hx Diabetes: Yes Hx Cardiac Disease: Yes Hx Renal Disease: No Hx Cirrhosis: No Hx Alcoholism: No Hx HIV/AIDS: No Hx Splenectomy or Spleen Trauma: No Other PMH: 7 heart stents, lung ca s/p partial lobectomy, diabetes, DVT, HTN - Family History Significant Family History: No pertinent family hx - Social History Smoking Status: Never smoked Constitutional: Initial Vital Signs Temperature (C) 36.8 C 07/17/18 07:13 Heart Rate 88 07/17/18 07:13 Respiratory Rate 16 07/17/18 07:13 Blood Pressure 132/81 H 07/17/18 07:13 O2 Sat (%) 94 07/17/18 07:13 O2 Delivery Mode Ventilator,Humidified O2 (L/minute) 15 Allergies/Adverse Reactions: aspirin Allergy (Verified 11/03/17 18:34) Rash codeine Allergy (Verified 07/17/18 06:28) Vomiting Penicillins Allergy (Verified 07/17/18 06:28) Rash Tetanus Vaccines and Toxoid Allergy (Verified 07/17/18 06:28) HAND AND ARM EXTREME SWELLING Home Medications: Medication Instructions Recorded Temazepam [Restoril 15 MG (*)] 15 mg PO Q2D@21 07/11/17 Acetaminophen [Tylenol ES 500 mg 500 mg PO Q6HRS PRN 07/12/18 (*)] Amitriptyline HCl [Elavil 50 mg 50 mg PO HS 07/12/18 (*)] Atenolol [Tenormin 50 mg (*)] 50 mg PO HS 07/12/18 Cetirizine [ZyrTEC 10 mg (*)] 10 mg PO DAILY 07/12/18 Cholecalciferol Vit D3 [Vitamin D3 1,000 units PO DAILY 07/12/18 (*)] Herbals/Supplements -Info Only 1 ea PO DAILY 07/12/18 Isosorbide Dinitrate [Isosorbide 10 mg PO BIDNITRATE 07/12/18 Dinitrate 10 mg (*)] Lisinopril [Zestril 20 mg (*)] 20 mg PO DAILY 07/12/18 [place]-3 Fatty Acids [Fish Oil 1000 1,000 mg PO DAILY 07/12/18 mg (*)] amLODIPine BESYLATE [Norvasc 10 mg 10 mg PO HS 07/12/18 (*)] metFORMIN HCL [Glucophage 500 mg 500 mg PO BIDMEAL 07/12/18 (*)] traZODone [traZODONE 100MG (*)] 100 mg PO HS 07/12/18 Lab and Imaging 07/19/18 03:50 07/19/18 03:50 WBC 12.75 10^3/uL (3.80-9.50) H 07/19/18 03:50 RBC 2.99 10^6/uL (4.18-5.33) L 07/19/18 03:50 Hgb 9.2 g/dL (12.6-16.3) L 07/19/18 03:50 POC Hgb 9.5 gm/dL (12.6-16.3) L 07/19/18 12:25 Hct 26.6 % (38.0-47.0) L 07/19/18 03:50 POC Hct 28 % (38-47) L 07/19/18 12:25 MCV 89.0 fL (81.5-99.8) 07/19/18 03:50 MCH 30.8 pg (27.9-34.1) 07/19/18 03:50 MCHC 34.6 g/dL (32.4-36.7) 07/19/18 03:50 RDW 13.8 % (11.5-15.2) 07/19/18 03:50 Plt Count 72 10^3/uL (150-400) L 07/19/18 03:50 MPV 10.6 fL (8.7-11.7) 07/18/18 04:00 Neut % (Auto) Not Reported 07/18/18 04:00 Lymph % (Auto) Not Reported 07/18/18 04:00 [place] % (Auto) Not Reported 07/18/18 04:00 Eos % (Auto) Not Reported 07/18/18 04:00 Baso % (Auto) Not Reported 07/18/18 04:00 Nucleat RBC Rel Count Not Reported 07/18/18 04:00 Absolute Neuts (auto) Not Reported 07/18/18 04:00 Absolute Lymphs (auto) Not Reported 07/18/18 04:00 Absolute Monos (auto) Not Reported 07/18/18 04:00 Absolute Eos (auto) Not Reported 07/18/18 04:00 Absolute Basos (auto) Not Reported 07/18/18 04:00 Absolute Nucleated RBC Not Reported 07/18/18 04:00 Immature Gran % Not Reported 07/18/18 04:00 Seg Neutrophils % 80.8 % 07/18/18 04:00 Band Neutrophils % 11.1 % 07/18/18 04:00 Lymphocytes % 3.0 % 07/18/18 04:00 Monocytes % 4.1 % 07/18/18 04:00 Eosinophils % 0.0 % 07/18/18 04:00 Basophils % 0.0 % 07/18/18 04:00 Metamyelocytes % 1.0 % 07/18/18 04:00 Myelocytes % 0.0 % 07/18/18 04:00 Promyelocytes % 0.0 % 07/18/18 04:00 Blast Cells % 0.0 % 07/18/18 04:00 Immature Gran # Not Reported 07/18/18 04:00 Absolute Seg Neuts 12.98 10^3/uL (1.70-6.50) H 07/18/18 04:00 Absolute Band Neuts 1.78 10^3/uL (0.00-0.70) H 07/18/18 04:00 Absolute Lymphocytes 0.48 10^3/uL (1.00-3.00) L 07/18/18 04:00 Absolute Monocytes 0.66 10^3/uL (0.30-0.80) 07/18/18 04:00 Absolute Eosinophils 0.00 10^3/uL (0.03-0.40) L 07/18/18 04:00 Absolute Basophils 0.00 10^3/uL (0.02-0.10) L 07/18/18 04:00 Absolute Metamyelocyte 0.16 10^3/mL (0.00-0.00) H 07/18/18 04:00 Absolute Myelocytes 0.00 10^3/mL (0.00-0.00) 07/18/18 04:00 Absolute Promyelocytes 0.00 10^3/uL (0.00-0.00) 07/18/18 04:00 Absolute Plasma Cells 0.00 10^3/uL (0.00-0.00) 07/18/18 04:00 Nucleated RBCs 0 /100 WBC (0-0) 07/18/18 04:00 Absolute Blast Cells 0.00 10^3/uL (0.00-0.00) 07/18/18 04:00 Plasma Cells % 0.0 % 07/18/18 04:00 Toxic Granulation PRESENT H 07/18/18 04:00 Platelet Estimate ADEQUATE (ADEQ) 07/18/18 04:00 Hypochromasia 1+ H 07/18/18 04:00 Basophilic Stippling 1+ H 07/18/18 04:00 Target Cells 1+ H 07/18/18 04:00 Smear Review By Jaqueline VILLARREAL MD 07/18/18 04:00 POC Blood Source ARTERIAL 07/19/18 05:33 Puncture Site ARTERIAL LINE 07/19/18 09:00 Patient Temperature 37.2 DEGREES 07/19/18 09:00 pCO2 33 mmHg (34-38) L 07/19/18 09:00 pO2 77 mmHg (65-75) H 07/19/18 09:00 Total CO2 23 mEq/L (23-27) 07/19/18 09:00 POC ABG pH 7.50 (7.35-7.45) H 07/19/18 05:33 ABG pH 7.43 (7.35-7.45) 07/19/18 09:00 POC ABG pCO2 27 mmHg (34-38) L 07/19/18 05:33 POC ABG pO2 63 mmHg (65-75) L 07/19/18 05:33 ABG PO2/FiO2 Ratio 193 RATIO 07/19/18 09:00 POC ABG HCO3 21 mEq/L (22-26) L 07/19/18 05:33 ABG HCO3 22 mEq/L (22-26) 07/19/18 09:00 POC ABG Total CO2 22 mEq/L (23-27) L 07/19/18 05:33 POC ABG O2 Sat 94 % (92-95) 07/19/18 05:33 ABG O2 Saturation 94 % (92-95) 07/19/18 09:00 POC ABG Base Excess -3.0 mEq/L (-2.5-2.5) L 07/19/18 05:33 ABG Base Excess -1.5 mEq/L (-2.5-2.5) 07/19/18 09:00 Total O2 Concentration 15.0 LITERS 07/18/18 22:08 O2 Concentration % 40 % (0-100) 07/19/18 09:00 Actual Respiration Rate 14 07/19/18 09:00 Set Respiration Rate 14 07/19/18 09:00 SIMV YES 07/19/18 09:00 POC FiO2 40.0000 % (0-100) 07/19/18 05:33 Tidal Volume 400 07/19/18 09:00 End Tidal CO2 29 07/18/18 22:55 PEEP 5 07/19/18 09:00 Pressure Support 7 07/18/18 22:55 CPAP YES 07/17/18 14:15 POC Sodium 135 mEq/L (135-145) 07/19/18 12:25 Sodium 133 mEq/L (135-145) L 07/19/18 03:50 POC Potassium 3.7 mEq/L (3.3-5.0) 07/19/18 12:25 Potassium 4.3 mEq/L (3.3-5.0) 07/19/18 03:50 POC Chloride 99 mEq/L (97-110) 07/19/18 12:25 Chloride 100 mEq/L (97-110) 07/19/18 03:50 Carbon Dioxide 23 mEq/l (22-31) 07/19/18 03:50 Anion Gap 10 mEq/L (6-14) 07/19/18 03:50 POC BUN 27 mg/dL (7-23) H 07/19/18 12:25 BUN 25 mg/dL (7-23) H 07/19/18 03:50 Creatinine 1.9 mg/dL (0.6-1.0) H 07/19/18 03:50 POC Creatinine 2.7 mg/dL (0.6-1.0) H 07/19/18 12:25 Estimated GFR 26 07/19/18 03:50 Glucose 267 mg/dL (70-100) H 07/19/18 03:50 POC Glucose 119 mg/dL (70-100) H 07/19/18 13:28 POC Lactic Acid Arter 2.7 mmol/L (0.5-1.6) H D 07/19/18 05:33 Calcium 7.9 mg/dL (8.5-10.4) L 07/19/18 03:50 Patient ABO/Rh B POSITIVE 07/15/18 11:30 Antibody Screen NEGATIVE 07/15/18 11:30 Crossmatch IS Only See Detail 07/15/18 11:30
[2018-07-19 16:03] LABS: CREATINE KINASE 921 IU/L (0-156)
--- NOTE | 2018-07-19 16:15 | GCON ---
PULMONARY CRITICAL CARE CONSULTATION. DATE OF CONSULTATION: 07/19/2018 HPI: This is a 73-year-old female with known coronary artery disease who failed outpatient medical m anagement and was evaluated by Cardiology on July 01. She was subsequently referred to CT surgery and underwent a coronary artery bypass grafting on 07/17/2018 without difficulty. She was doing dick rly well and was expected to transfer to the PCU today but late last evening had difficulty with hypo tension. She became hemodynamically unstable and there was difficulty maintaining oxygen saturations and had respiratory distress. She was also dealing with acute kidney injury and hyperkalemia. She was subsequently emergently intubated overnight and required both dopamine and Levophed drips to main tain her blood pressure. The etiology of the hypotension is not exactly clear. There was some alesia rn about the beta emiliano usage, but in any case, she is slowly but surely recovering fairly well delfina pite a difficult night. REVIEW OF SYSTEMS: Otherwise negative. PAST MEDICAL HISTORY: Includes: 1. Coronary disease, as described above. 2. Lung cancer I believe in 2011. I think she had a lobectomy at that time, but notes are fairly un clear. 3. She is also thought to have a history of hepatitis again details are not known. 4. Depression. 5. Hyperlipidemia. 6. Hypertension. 7. Possible DVT in the past. 8. Irritable bowel syndrome. 9. Migraines. 10. Urinary tract infections. PAST SURGICAL HISTORY: Other than CABG, includes only lobectomy as I suspected, but I will clarify t hat soon with her family. SOCIAL HISTORY: She is a nonsmoker. No alcohol or IV drug use. FAMILY HISTORY: Noncontributory at this time. MEDICATIONS: Include Levophed which is being titrated down actively as we speak. Dopamine which polina ins at 3. She is also on Tylenol, [place], Elavil, Tenormin, Dulcolax, propofol, a Lasix drip, insulin , Reglan, Zofran, Protonix, MiraLAX, Senokot, Cepacol, Ultram, trazodone. PHYSICAL EXAM: VITAL SIGNS: At the time my evaluation, she was afebrile and had a blood pressure of 128/54. She had a heart rate of about 70, respirations 14, oxygen saturation 100% on the ventilator. She was sedated but no apparent distress and was not using accessory muscles for breathing. Her ve ntilator settings were minimal at 40% FiO2 and 5 of PEEP. Her pupils were equally round and reactive to light. Nonicteric and noninjected. NECK: Supple, without obvious adenopathy. Breath sounds we re diminished but clear to auscultation bilaterally without wheezing or rales. CHEST: The chest wall incisions were clean and dry without evidence of infection or bleeding. HEART: Appeared to have re gular rate and rhythm. I did not hear murmur very well. ABDOMEN: Otherwise soft, nontender, nondist ended without hepatosplenomegaly. EXTREMITIES: Show no clubbing, cyanosis, or edema. NEUROLOGIC: E xam nonfocal as best I could tell. SKIN: Warm and dry without evidence of rash. OBJECTIVE DATA: Includes white count today 12.7, hematocrit of 26.6, platelets 72. Arterial blood g as shows pH 7.43, pCO2 37, pO2 77, bicarb 22, with a sat of 94% on IMV with an underlying rate of 14, tidal volume of 400. She is breathing right with the ventilator, 40% FiO2 and 5 of PEEP. Basic met abolic panel shows sodium of 134, potassium 4.1, chloride 97, bicarb 23, BUN 27, creatinine 2.5, gluc ose 192. Chest x-ray shows a well placed endotracheal tube. It may be a little bit deep and improve d aeration of her lungs. ASSESSMENT AND PLAN: 1. Severe hypotension of uncertain etiology. At this point, though she is recovering fairly rapidly , I will continue to hold her beta emiliano at this point since that was postulated as 1 potential mec hanism. Hypovolemia is another 1. She did get nearly a liter of albumin overnight with this improve ment. She is making reasonable urine output at this time, which is certainly a favorable sign. I do not see any evidence of septic shock. We could consider a repeat echocardiogram to evaluate her eje ction fraction if her pressor requirement does not go away. The Levophed is nearly off, I presume th e dopamine will be next. We will discuss this with Dr. Fountain to delineate his preferences on that. 2. Respiratory failure. I believe that this is due to primarily #1. She has no underlying lung dis ease and is on very little ventilator support. Her blood gas is reasonable this time, so I left the ventilator settings alone. My expectation is she will wean and extubate 1st thing tomorrow morning w ithout much difficulty. 3. Acute kidney injury. The urine output is encouraging, though the creatinine has been slowly risi ng despite her Lasix drip. She has had a renal consult. There were no specific changes at this time . 4. Diabetes. Her blood sugars are reasonable at this time. Our goal should be between about 80 and 160 with intermittent insulin as required. We will have to be careful with that given the renal ins ufficiency. A total of about 45 minutes of critical care time was required for the assessment and management of t his patient. /[id number]/MODL
--- NOTE | 2018-07-19 16:27 | HOSPPROG ---
Hospitalist Progress Note Assessment/Plan: * DM II - on metformin as outpatient -now critically ill - insulin gtt per ICU protocol * Acute respiratory failure - on vent * Shock - on pressors * ARF due to ATN -renal following -no metformin while ARF * CAD s/p CABG Hospitalist medicine will continue to follow regarding diabetes management Subjective: Intubated emergently about 10Pm last night for increased respiratory distress now on pressors Objective: Vital Signs Temp Pulse Resp BP Pulse Ox 37.1 C 74 14 138/55 H 97 07/19/18 15:55 07/19/18 15:55 07/19/18 15:55 07/19/18 15:55 07/19/18 15:55 Laboratory Results 07/19/18 03:50 07/19/18 15:30 07/18/18 07/19/18 07/20/18 05:59 05:59 05:59 Intake Total 2422.3 2415 Output Total 2225 975 240 Balance 197.3 1440 -240 CXR viewed, my personal interpretation is - possible pulmonary edema Renal US - negative - Physical Exam Constitutional: no apparent distress, appears nourished, not in pain, other ( intubated and sedated) Cardiovascular: regular rate and rhythym, no murmur, rub, or gallop Respiratory: no respiratory distress, no rales or rhonchi, clear to auscultation Gastrointestinal: normoactive bowel sounds, soft, non-tender abdomen, no palpable masses Skin: no rashes or abrasions, no fluctuance, no induration Neurologic: No AAOx3 Psychiatric: encephalopathic, poor insight, poor judgement, poor memory, No interacting appropriately ICD10 Worksheet Patient Problems: Problems Problem Status Onset Acute blood loss anemia Acute S/P CABG x 3 Acute ~07/17/18 Type 2 diabetes mellitus Chronic Stenosis of coronary stent Acute CAD in [place] artery Chronic
[2018-07-19] MEDS ORDERED: PROTOCOL POTASSIUM 1 DOSE MISC PRN (16:42)
[2018-07-20] MEDS: FUROSEMIDE 100 MG in D5W 100 ML IV SCH ×2 (01:09→04:17)
[2018-07-20] MEDS: PROPOFOL/EMULSION 100 ML IV SCH (02:43)
[2018-07-20] MEDS: PANTOPRAZOLE SODIUM 40 MG VIAL IVP SCH (08:33)
--- NOTE | 2018-07-20 09:44 | SOAPPROG ---
SOAP Progress Note Assessment/Plan: Assessment/Plan: SARAH: in setting of hypotension and then shock requiring pressors, appears to be ATN. Post-op Cr was 0.6 and now up to 3.2 but seems to be plateauing there, lytes ok and UOP improving even off Lasix ggt. - No need for HD, should hopefully not require it. - D/c Lasix ggt. - Will continue to monitor closely for renal recovery. - Avoid hypotension and nephrotoxins. Shock: improving, now off Levophed. Anemia: Hgb stable at 10.0 s/p CABG, will continue to monitor, no need for epo. Lactic acidosis: Improved, lactate now down to 1.0. Subjective: No acute events overnight. Pt now off Levophed still on dopamine. She is off sedation and awake. She is off Lasix ggt and having good UOP on her own. Objective: Vital Signs Temp Pulse Resp BP Pulse Ox 37.1 C 75 14 125/61 H 100 07/19/18 15:55 07/20/18 09:00 07/20/18 09:00 07/20/18 09:00 07/20/18 09:00 Laboratory Results 07/20/18 04:00 07/20/18 04:00 07/19/18 07/20/18 07/21/18 05:59 05:59 05:59 Intake Total 2415 1415 Output Total 975 1535 Balance 1440 -120 General: awake, no acute distress Eyes: EOMI, PERRL OP: intubated CV: RRR Resp: intubated and on vent Abd: Soft, NT Ext: no edema ICD10 Worksheet Patient Problems: Problems Problem Status Onset Acute blood loss anemia Acute S/P CABG x 3 Acute ~07/17/18 Stenosis of coronary stent Acute CAD in [place] artery Chronic Type 2 diabetes mellitus Chronic
--- NOTE | 2018-07-20 09:46 | SOAPPROG ---
SOAP Progress Note Assessment/Plan: POD #3: CABGx3 (CHAMBERS-LAD, SVG-OM1, SVG-PDA), EVH L CAD/unstable angina s/p CABGx3 - Continue AL/FC - CTs to remain while on positive pressure ventilation - ASA/stain/BB for secondary prevention when appropriate Post-operative shock/hypotension - Off Levophed. Still on Dopamine. Acute hypoxic respiratory failure - Tolerating T-piece. - Wean vent as tolerated. Acute oliguric renal failure secondary to hypotension - BUN 36/Cr 3.2 with good UOP. Off Lasix gtt. - Nephrology following. Acute blood loss anemia - H&H 10.0/28.9 - s/p 1U PRBC Secondary thrombocytopenia d/t CPB - Plt 52k (72k) - Keep PW in place. Continue to hold ASA and check HIT. - Will follow. DM 2 (A1c 8.3%) - Insulin gtt off. - Further mgmt as per hospitalist HTN - Will allow permissive hypertension, anti-hypertensives when appropriate DVT prophylaxis - SCDs Subjective: Patient awake and alert. Reports pain with ET tube, otherwise no surgical pain. Objective: Vital Signs Temp Pulse Resp BP Pulse Ox 37.1 C 75 14 125/61 H 100 07/19/18 15:55 07/20/18 09:00 07/20/18 09:00 07/20/18 09:00 07/20/18 09:00 Laboratory Results 07/20/18 04:00 07/20/18 04:00 07/19/18 07/20/18 07/21/18 05:59 05:59 05:59 Intake Total 2415 1415 Output Total 975 1535 Balance 1440 -120 Physical Exam - Physical Exam General Appearance: WD/WN, alert, no apparent distress Neck: supple Respiratory: decreased breath sounds (bases.), other (coarse BS bilaterally. ) Cardiac/Chest: regular rate, rhythm, other (sternum stable, sternotomy c/d/i. ) Abdomen: non-tender, soft (hypo to normoactive BS.) Skin: normal color, warm/dry Extremities: other (mild upper extremity edema, minimal lower extremity edema. ) Neuro/Psych: alert ICD10 Worksheet Patient Problems: Problems Problem Status Onset Acute blood loss anemia Acute S/P CABG x 3 Acute ~11/07/18 Stenosis of coronary stent Acute CAD in [place] artery Chronic Type 2 diabetes mellitus Chronic
--- NOTE | 2018-07-20 12:03 | ASMTCMCOM ---
CM Note CM Note Notes: Patient is making clinical progress: off some pressors, Creatnine rising, and anemia improving. Attempts will be made to extubate. She is supported by her and two sons. PT/OT/INFORMATION TECHNOLOGY SECURITY ANALYST will evaluate when appropriate. Case Management will follow. Date Signed: 07/20/2018 12:03 PM Electronically Signed By:Regina Rushing RN
[2018-07-20] MEDS ORDERED: D50W 25 GM/50 ML SYR IVP PRN (13:13)
--- NOTE | 2018-07-20 15:38 | PDINTPN ---
[employer] Progress Note Assessment/Plan: 73 F with known CAD who failed outpatient medical management s/p CABG 07/18. No intraoperative complications and extubated per protocol. However, she developed severe hypotension treated with albumin and RBCs along with dopamine and levophed but then developed respiratory distress and required emergent re- intubation. On 07/19 she was more stable but remained intubated per CT surgery. Hemodynamics continued to improve and she was extubated easily on 07/20. * Cardiogenic shock post CABG of unclear etiology. Atenolol given in AM 07/18 but no hemodynamic compromise until 2099. No evidence of sepsis, adrenal and ACS highly unlikely. Now mostly resolved and levophed off with OK UOP. Remains on dopamine per CT surgery- no arrhythmia * Acute respiratory failure with hypoxemia probably related to volume overload in setting of fluid resuscitation. Now mostly resolved after lasix drip. Extubated without difficulty today. Continue with IS, OOB as tolerated. * SARAH 2/2 shock/ATN. Though creatinine is rising, UOP looks good. Renal following and no HD needed to date. Continue frequent labs to monitor for K, HCO3. Lasix drip dc'd early this am. * DM- BG 113-145; at goal currently. * Anemia- H/H stable or rising and no evidence of bleeding * Thrombocytopenia- expected fall after CABG; less likely HIT. Follow * * critical care time 35 minutes including vent management prior to extubation Subjective: no events overnight Objective: Vital Signs Temp Pulse Resp BP Pulse Ox 37.2 C 80 26 H 127/53 H 96 07/20/18 13:00 07/20/18 15:00 07/20/18 15:00 07/20/18 15:00 07/20/18 15:00 Laboratory Results 07/20/18 04:00 07/20/18 11:45 07/19/18 07/20/18 07/21/18 05:59 05:59 05:59 Intake Total 2415 1415 82 Output Total 975 1535 650 Balance 1440 120 -568 Physical Exam - Physical Exam General Appearance: alert, no apparent distress EENT: PERRL/EOMI, ET tube (removed), No scleral icterus (R), No scleral icterus (L) Neck: full range of motion, supple Respiratory: lungs clear, normal breath sounds, decreased breath sounds, No respiratory distress, No accessory muscle use Cardiac/Chest: regular rate, rhythm, No edema Abdomen: non-tender, soft, No distended, No guarding Skin: normal color, warm/dry, No cyanosis Lymphatic: no adenopathy Extremities: No pedal edema Neuro/Psych: alert, normal mood/affect, oriented x 3, No abnormal school commissioner II-XII ICD10 Worksheet Patient Problems: Problems Problem Status Onset Acute blood loss anemia Acute S/P CABG x 3 Acute ~07/17/18 Stenosis of coronary stent Acute CAD in [place] artery Chronic Type 2 diabetes mellitus Chronic
--- NOTE | 2018-07-20 15:43 | HOSPPROG ---
Hospitalist Progress Note Assessment/Plan: * DM II - on metformin as outpatient -off insulin gtt and glucose okay -sliding scale as needed * Acute respiratory failure - extubated this am * Shock - still on low dose pressors * ARF due to ATN -hopeful plateau soon -no metformin while ARF * CAD s/p CABG Hospitalist medicine will continue to follow regarding diabetes management Subjective: Extubated this am, about to take first PO, slight lightheaded with rising Objective: Vital Signs Temp Pulse Resp BP Pulse Ox 37.2 C 80 26 H 127/53 H 96 07/20/18 13:00 07/20/18 15:00 07/20/18 15:00 07/20/18 15:00 07/20/18 15:00 Laboratory Results 07/20/18 04:00 07/20/18 11:45 07/19/18 07/20/18 07/21/18 05:59 05:59 05:59 Intake Total 2415 1415 82 Output Total 975 1535 650 Balance 1440 -120 -568 CXR viewed, my personal interpretation is - mild CHF tele reviewed - NSR - Physical Exam Constitutional: no apparent distress, appears nourished, not in pain Cardiovascular: regular rate and rhythym, no murmur, rub, or gallop Respiratory: no respiratory distress, no rales or rhonchi, clear to auscultation Gastrointestinal: normoactive bowel sounds, soft, non-tender abdomen, no palpable masses Skin: no rashes or abrasions, no fluctuance, no induration Neurologic: AAOx3, sensation intact bilaterally Psychiatric: interacting appropriately, not anxious, not encephalopathic, thought process linear ICD10 Worksheet Patient Problems: Problems Problem Status Onset Acute blood loss anemia Acute S/P CABG x 3 Acute ~07/17/18 Type 2 diabetes mellitus Chronic Stenosis of coronary stent Acute CAD in [place] artery Chronic
[2018-07-20] MEDS: INSULIN REGULAR, HUMAN 100 UNIT/1 ML VIAL STANDARD SC SCH ×2 (17:44→22:01)
[2018-07-20] MEDS: ONDANSETRON 4 MG/2 ML VIAL IVP PRN (19:59)
[2018-07-20] MEDS: HYDROCODONE/APAP 5/325 TAB PO PRN ×2 (20:52→23:59)
[2018-07-21] MEDS: INSULIN REGULAR, HUMAN 100 UNIT/1 ML VIAL STANDARD SC SCH ×4 (07:52→21:15)
[2018-07-21] MEDS: PANTOPRAZOLE SODIUM 40 MG VIAL IVP SCH (08:10)
[2018-07-21] MEDS ORDERED: METOCLOPRAMIDE 10 MG/2 ML VIAL IVP PRN (08:30)
--- NOTE | 2018-07-21 08:37 | SOAPPROG ---
SOAP Progress Note Assessment/Plan: POD #4: CABGx3 (CHAMBERS-LAD, SVG-OM1, SVG-PDA), EVH L CAD/unstable angina s/p CABGx3 - Continue AL - CTs continue to drain. Will leave in place. - ASA/stain/BB for secondary prevention when appropriate Post-operative shock/hypotension - Off Levophed. Still on Dopamine. - Wean Dopamine as tolerated. Acute hypoxic respiratory failure - Resolved. Extubated yesterday. Currently on 2L NC. Acute oliguric renal failure secondary to hypotension - BUN 49/Cr 3.9 with good UOP (2455mls/24hrs). Lasix gtt d/c'd yesterday am. - Martinez still in place - Nephrology following Acute blood loss anemia - H&H 9.4/26.9 (10.0/28.9) - s/p 1U PRBC Secondary thrombocytopenia d/t CPB - Improving with plt 82k (52k) - Pacing wires cut at skin today. - Continue to hold ASA. HIT pending. - Will follow. DM 2 (A1c 8.3%) - Further mgmt as per hospitalist HTN - Will allow permissive hypertension, anti-hypertensives when appropriate - SBP 120-140's, on Dopamine. Hyperlipidemia - Diet controlled preop. Depression - Elavil resumed. DVT prophylaxis - SCDs Subjective: Patient reports nausea this am. Reports good pain control. Objective: Vital Signs Temp Pulse Resp BP Pulse Ox 36.3 C 76 21 H 129/52 H 96 07/21/18 08:00 07/21/18 08:00 07/21/18 08:00 07/21/18 08:00 07/21/18 08:00 Laboratory Results 07/21/18 05:30 07/21/18 05:30 07/20/18 07/21/18 07/22/18 05:59 05:59 05:59 Intake Total 1415 331.3 Output Total 1535 3015 Balance -120 -2683.7 Physical Exam - Physical Exam General Appearance: WD/WN, alert, no apparent distress Neck: supple Respiratory: decreased breath sounds (bases), crackles, other Cardiac/Chest: regular rate, rhythm, other (No murmurs, rubs, gallops. Sternum stable. Sternotomy c/d/i. ) Abdomen: normal bowel sounds, non-tender, soft Skin: normal color, warm/dry Extremities: other (Warm, no edema.) Neuro/Psych: alert, normal mood/affect, oriented x 3 ICD10 Worksheet Patient Problems: Problems Problem Status Onset Acute blood loss anemia Acute S/P CABG x 3 Acute ~07/17/18 Stenosis of coronary stent Acute CAD in [place] artery Chronic Type 2 diabetes mellitus Chronic
[2018-07-21] MEDS: ONDANSETRON 4 MG/2 ML VIAL IVP PRN (08:58)
[2018-07-21] MEDS ORDERED: SCOPOLAMINE HYDROBROMIDE 1 MG/3 DAYS PATCH TD SCH (10:45)
--- NOTE | 2018-07-21 14:28 | PDINTPN ---
Yarn Comber Progress Note Assessment/Plan: 73 F with known CAD who failed outpatient medical management s/p CABG 07/18. No intraoperative complications and extubated per protocol. However, she developed severe hypotension treated with albumin and RBCs along with dopamine and levophed but then developed respiratory distress and required emergent re- intubation. On 07/19 she was more stable but remained intubated per CT surgery. Hemodynamics continued to improve and she was extubated easily on 07/20. * Cardiogenic shock post CABG of unclear etiology. Atenolol given in AM 07/18 but no hemodynamic compromise until 2099. No evidence of sepsis, adrenal and ACS highly unlikely. Now mostly resolved and levophed off with adequate UOP. Dopamine weaned off today. Was on lasix drip for first 24-48 hours but dc'd when uop picked up * Acute respiratory failure with hypoxemia probably related to volume overload in setting of fluid resuscitation. Now mostly resolved after lasix drip. Required reintubation postop, but extubated without difficulty on 07/20. Continue with IS, OOB as tolerated. Some residual edema on CXR today. * SARAH 2/2 shock/ATN. Creatinine up to 4.0 but good uop. Decreasing creatinine today without acidosis or hyperkalemia. DA dc'd; continue to follow along with renal. * DM- BG 113-145; at goal currently. * Anemia- H/H stable or rising and no evidence of bleeding * Thrombocytopenia- expected fall after CABG; less likely HIT. Follow * * 07/21/18 14:25 Subjective: stable overnight but remains on DA. Excellent uop Objective: Vital Signs Temp Pulse Resp BP Pulse Ox 36.3 C 73 18 155/69 H 96 07/21/18 08:00 07/21/18 13:00 07/21/18 13:00 07/21/18 13:00 07/21/18 13:00 Laboratory Results 07/21/18 05:30 07/21/18 11:40 07/20/18 07/21/18 07/22/18 05:59 05:59 05:59 Intake Total 1415 331.3 Output Total 1535 3015 Balance -120 -2683.7 Physical Exam - Physical Exam General Appearance: WD/WN, alert, no apparent distress, obese EENT: PERRL/EOMI, No scleral icterus (R), No scleral icterus (L) Neck: full range of motion, supple Respiratory: decreased breath sounds, rhonchi (few l>r), No respiratory distress , No accessory muscle use Cardiac/Chest: regular rate, rhythm, other (incision cdi), No edema Abdomen: non-tender, soft, No distended, No guarding Skin: normal color, warm/dry, No cyanosis Lymphatic: no adenopathy Extremities: No pedal edema Neuro/Psych: alert, normal mood/affect, oriented x 3 ICD10 Worksheet Patient Problems: Problems Problem Status Onset Acute blood loss anemia Acute S/P CABG x 3 Acute ~07/17/18 Stenosis of coronary stent Acute CAD in [place] artery Chronic Type 2 diabetes mellitus Chronic
--- NOTE | 2018-07-21 16:25 | HOSPPROG ---
Hospitalist Progress Note Assessment/Plan: * CAD s/p CABG -mgmt per CT surgery * DM II - on metformin as outpatient -off insulin gtt and glucose okay -sliding scale as needed - poor PO intake at this time * Acute respiratory failure - re-intubated - now extubated again * Shock - off pressors * ARF due to ATN -creatinine improving -no metformin while ARF * Thrombocytopenia -HIT antibody pending Hospitalist medicine will continue to follow regarding diabetes management Subjective: Poor PO, overall better though Objective: Vital Signs Temp Pulse Resp BP Pulse Ox 36.5 C 80 20 134/77 H 99 07/21/18 14:00 07/21/18 14:00 07/21/18 14:00 07/21/18 14:00 07/21/18 14:00 Laboratory Results 07/21/18 05:30 07/21/18 11:40 07/20/18 07/21/18 07/22/18 05:59 05:59 05:59 Intake Total 1415 331.3 Output Total 1535 3015 Balance -120 -2683.7 - Physical Exam Constitutional: no apparent distress, appears nourished, not in pain Cardiovascular: regular rate and rhythym, no murmur, rub, or gallop Respiratory: no respiratory distress, no rales or rhonchi, clear to auscultation Gastrointestinal: normoactive bowel sounds, soft, non-tender abdomen, no palpable masses Skin: no rashes or abrasions, no fluctuance, no induration Neurologic: AAOx3, sensation intact bilaterally Psychiatric: interacting appropriately, not anxious, not encephalopathic, thought process linear ICD10 Worksheet Patient Problems: Problems Problem Status Onset Acute blood loss anemia Acute S/P CABG x 3 Acute ~07/17/18 Type 2 diabetes mellitus Chronic Stenosis of coronary stent Acute CAD in [place] artery Chronic
--- NOTE | 2018-07-21 16:33 | SOAPPROG ---
SOAP Progress Note Assessment/Plan: Assessment/Plan: SARAH: in setting of hypotension and then shock requiring pressors, appears to be ATN. Post-op Cr was 0.6, peaked yesterday at 4.0 and now is down to 3.7, lytes ok and UOP improving even off Lasix ggt. - No need for HD, should not require it this hospitalization. - Would not resume Lasix. - Will continue to monitor closely for renal recovery. - Avoid hypotension and nephrotoxins. Shock: improved, now off Levophed and dopamine. Anemia: Hgb stable at 9.4 s/p CABG, will continue to monitor, no need for epo. Subjective: No acute events overnight. Pt extubated yesterday. She is feeling tired. She is having good UOP. Objective: Vital Signs Temp Pulse Resp BP Pulse Ox 36.5 C 80 20 134/77 H 99 07/21/18 14:00 07/21/18 14:00 07/21/18 14:00 07/21/18 14:00 07/21/18 14:00 Laboratory Results 07/21/18 05:30 07/21/18 11:40 07/20/18 07/21/18 07/22/18 05:59 05:59 05:59 Intake Total 1415 331.3 Output Total 1535 3015 Balance -120 -2683.7 General: alert and oriented, no acute distress Eyes: EOMI, PERRL OP: Clear CV: RRR Resp: nonlabored respirations Abd: Soft, NT/ND Ext; no edema Neuro: CN II-XII Grossly intact, no asterixis ICD10 Worksheet Patient Problems: Problems Problem Status Onset Acute blood loss anemia Acute S/P CABG x 3 Acute ~07/17/18 Stenosis of coronary stent Acute CAD in [place] artery Chronic Type 2 diabetes mellitus Chronic
[2018-07-21] MEDS ORDERED: traZODone 100 MG TAB PO SCH (21:00)
[2018-07-21] MEDS: HYDROCODONE/APAP 5/325 TAB PO PRN (21:14)
[2018-07-21] MEDS: AMITRIPTYLINE HCL 50 MG TAB PO SCH (21:14)
--- NOTE | 2018-07-22 07:11 | SOAPPROG ---
SOAP Progress Note Assessment/Plan: POD #5: CABGx3 (CHAMBERS-LAD, SVG-OM1, SVG-PDA), EVH L CAD/unstable angina s/p CABGx3 - Off drips - AL out, FC to be reomved if OK with renal, CTs to be removed this AM - ASA/stain/BB for secondary prevention when appropriate Post-operative hypotension likely secondary to beta-emiliano use - Resolved Acute hypoxic respiratory failure - Extubated without difficulty Acute oliguric renal failure secondary to hypotension - Cr peaked - Great UOP without metabolic derangements - Renal following Acute blood loss anemia with thrombocytopenia - Stable s/p 1U PRBC - Platelets > 100 DM 2 (A1c 8.3%) - Mgmt as per hospitalist HTN - Permissive hypertension, anti-hypertensives when appropriate DVT prophylaxis - SCDs Subjective: Comfortable. Very tired this AM. Objective: Vital Signs Temp Pulse Resp BP Pulse Ox 36.8 C 81 19 107/57 L 97 07/22/18 04:00 07/22/18 04:00 07/22/18 04:00 07/22/18 04:00 07/22/18 04:00 Laboratory Results 07/22/18 04:30 07/22/18 04:30 07/21/18 07/22/18 07/23/18 05:59 05:59 05:59 Intake Total 331.3 750 Output Total 3015 1450 Balance -2683.7 -700 Physical Exam - Physical Exam General Appearance: no apparent distress EENT: No scleral icterus (R), No scleral icterus (L) Neck: normal inspection Respiratory: No respiratory distress Cardiac/Chest: regular rate, rhythm Abdomen: non-tender, soft, No distended Skin: normal color, warm/dry Extremities: No pedal edema Neuro/Psych: no motor/sensory deficits, alert ICD10 Worksheet Patient Problems: Problems Problem Status Onset Acute blood loss anemia Acute S/P CABG x 3 Acute ~07/17/18 Stenosis of coronary stent Acute CAD in [place] artery Chronic Type 2 diabetes mellitus Chronic
[2018-07-22] MEDS: INSULIN REGULAR, HUMAN 100 UNIT/1 ML VIAL STANDARD SC SCH ×4 (08:12→21:26)
--- NOTE | 2018-07-22 08:23 | SOAPPROG ---
SOAP Progress Note Assessment/Plan: Assessment: SARAH: in setting of hypotension and then shock requiring pressors, likely ATN. Post-op Cr was 0.6, peaked at 4.0 -Cr improving, good UOP off lasix - No need for HD -volume status ok currently-- monitor - ok to remove chairez from our standpoint Shock: improved, now off Levophed and dopamine. no cultures. BP still on soft side- defer meds to ct surgery. Acute hypoxic resp failure, off vent. CT still in. Anemia: Hgb slow downtrend post op. defer to CT surgery for transfusion threshold Thrombocytopenia: plts improving as expected post op CAD s/p CABG x3 DM2 Melba Shah MD [facility] pager [phone] 07/22/18 09:28 Subjective: Sleeping comfortably now. Cr and UOP improving. Family at bedside. Objective: Vital Signs Temp Pulse Resp BP Pulse Ox 36.8 C 78 20 109/51 L 100 07/22/18 04:00 07/22/18 07:32 07/22/18 07:32 07/22/18 07:32 07/22/18 07:32 Laboratory Results 07/22/18 04:30 07/22/18 04:30 07/21/18 07/22/18 07/23/18 05:59 05:59 05:59 Intake Total 331.3 750 Output Total 3015 1450 Balance -2683.7 -700 Physical Exam - Physical Exam General Appearance: no apparent distress, other (sleeping but arousable) Neck: other (RIJ line c/d/i) Respiratory: lungs clear (CT with bloody output) Cardiac/Chest: regular rate, rhythm, other (sternal incision c/d/i) Abdomen: normal bowel sounds, non-tender, soft Pelvic Exam: other (chairez in with yellow urine) Skin: warm/dry Extremities: other (trace edema, SCDs on) ICD10 Worksheet Patient Problems: Problems Problem Status Onset Acute blood loss anemia Acute S/P CABG x 3 Acute ~07/17/18 Stenosis of coronary stent Acute CAD in [place] artery Chronic Type 2 diabetes mellitus Chronic
[2018-07-22] MEDS: PANTOPRAZOLE SODIUM 40 MG VIAL IVP SCH (09:56)
[2018-07-22] MEDS: HYDROCODONE/APAP 5/325 TAB PO PRN (10:13)
--- NOTE | 2018-07-22 10:19 | HOSPPROG ---
Hospitalist Progress Note Assessment/Plan: * CAD s/p CABG -mgmt per CT surgery * DM II - on metformin as outpatient -off insulin gtt and glucose okay -sliding scale as needed - poor PO intake at this time * Acute respiratory failure - re-intubated - now extubated again * Shock - off pressors * ARF due to ATN -creatinine improving -hold mtf * Thrombocytopenia - plts on the rise -HIT antibody pending * Encephalopathy - query metabolic / medication effect -hold trazodone and scopolamine -speech eval, concerned abt swallow function Hospitalist medicine will continue to follow regarding diabetes management Subjective: Pt is not very interactive this am, but follows commands. No fevers /chills. She was able to get up and walk to the chair with a walker. Objective: Vital Signs Temp Pulse Resp BP Pulse Ox 36.8 C 78 20 109/51 L 100 07/22/18 04:00 07/22/18 07:32 07/22/18 07:32 07/22/18 07:32 07/22/18 07:32 Laboratory Results 07/22/18 04:30 07/22/18 04:30 07/21/18 07/22/18 07/23/18 05:59 05:59 05:59 Intake Total 331.3 750 Output Total 3015 1450 Balance -2683.7 -700 - Physical Exam Constitutional: no apparent distress Eyes: PERRL Ears, Nose, Mouth, Throat: moist mucous membranes Cardiovascular: regular rate and rhythym Respiratory: no respiratory distress, clear to auscultation Gastrointestinal: normoactive bowel sounds, soft, non-tender abdomen Skin: warm Musculoskeletal: generalized weakness Psychiatric: encephalopathic ICD10 Worksheet Patient Problems: Problems Problem Status Onset Acute blood loss anemia Acute S/P CABG x 3 Acute ~07/17/18 Stenosis of coronary stent Acute CAD in [place] artery Chronic Type 2 diabetes mellitus Chronic
[2018-07-22] MEDS ORDERED: traZODone 100 MG TAB PO PRN (10:26)
--- NOTE | 2018-07-22 13:55 | PDINTPN ---
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 No intraoperative complications and extubated per protocol. However, she developed severe hypotension treated with albumin and RBCs along with dopamine and levophed but then developed respiratory distress and required emergent re- intubation. On 07/19 she was more stable but remained intubated per CT surgery. Hemodynamics continued to improve and she was extubated easily on 07/20. * Cardiogenic shock post CABG of unclear etiology. Atenolol given in AM 07/18 but no hemodynamic compromise until 2099. No evidence of sepsis, adrenal and ACS highly unlikely. Now mostly resolved and levophed off with adequate UOP. Dopamine weaned off today. Was on lasix drip for first 24-48 hours but dc'd when uop picked up * Acute respiratory failure with hypoxemia probably related to volume overload in setting of fluid resuscitation. Now mostly resolved after lasix drip. Required reintubation postop, but extubated without difficulty on 07/20. Continue with IS, OOB as tolerated. * SARAH 2/2 shock/ATN. Creatinine up to 4.0 but good uop. Decreasing creatinine last 2 days, now 2.8. * DM- BG 113-145; at goal currently. * Anemia- H/H trending down * Thrombocytopenia- Improving. * Altered Mental Status: ? related to meds, metabolic? * Elevated transaminases Plan: Reduce/hold medications as tolerated. Follow renal function, H/H, glucose. Repeat transaminases. 07/22/18 14:10 07/22/18 14:17 Subjective: Denies pain. Weak and not answering questions consistently/reliably. Objective: Vital Signs Temp Pulse Resp BP Pulse Ox 36.6 C 74 18 107/50 L 96 07/22/18 11:41 07/22/18 11:41 07/22/18 11:41 07/22/18 11:41 07/22/18 11:41 Laboratory Results 07/22/18 04:30 07/22/18 10:25 07/21/18 07/22/18 07/23/18 05:59 05:59 05:59 Intake Total 331.3 750 Output Total 3015 1450 Balance -2683.7 -700 Laboratory Tests 07/22/18 10:25 AST 367 H ALT 195 H Alkaline Phosphatase 71 Physical Exam - Physical Exam General Appearance: no apparent distress, No alert EENT: normal ENT inspection Neck: normal inspection Respiratory: lungs clear, normal breath sounds Cardiac/Chest: regular rate, rhythm, No edema Abdomen: normal bowel sounds, non-tender, soft Skin: normal color, warm/dry Extremities: normal inspection Neuro/Psych: motor weakness (generalized), No alert (Awake, but slowly resopnds to environment. Not consisently answering questions.), No normal mood/affect, No oriented x 3 ICD10 Worksheet Patient Problems: Problems Problem Status Onset Acute blood loss anemia Acute S/P CABG x 3 Acute ~07/17/18 Stenosis of coronary stent Acute CAD in [place] artery Chronic Type 2 diabetes mellitus Chronic
[2018-07-22] MEDS: HEPARIN 5,000 UNIT/0.5 ML INJ SC SCH ×2 (14:53→21:18)
[2018-07-22] MEDS: ACETAMINOPHEN 500 MG TAB PO PRN (19:35)
[2018-07-22] MEDS: AMITRIPTYLINE HCL 50 MG TAB PO SCH (21:19)
[2018-07-23] MEDS: ACETAMINOPHEN 500 MG TAB PO PRN ×2 (04:30→11:19)
[2018-07-23 05:07] LABS: PLATELET COUNT 162 10^3/uL (150-400)
[2018-07-23] MEDS: HEPARIN 5,000 UNIT/0.5 ML INJ SC SCH ×3 (06:03→20:48)
[2018-07-23] MEDS: INSULIN REGULAR, HUMAN 100 UNIT/1 ML VIAL STANDARD SC SCH ×4 (08:19→23:13)
--- NOTE | 2018-07-23 08:28 | SOAPPROG ---
SOAP Progress Note Assessment/Plan: POD #6: CABGx3 (CHAMBERS-LAD, SVG-OM1, SVG-PDA), EVH L CAD/unstable angina s/p CABGx3 - AL/FC/CTs out - Statin/BB for secondary prevention when appropriate, ASA avoided d/t "allergy " - OK for transfer to PCU Post-operative hypotension likely secondary to beta-emiliano use - Resolved Acute hypoxic respiratory failure - Extubated without difficulty Acute oliguric renal failure secondary to hypotension - Cr peaked - Great UOP without metabolic derangements - Renal following Acute blood loss anemia with thrombocytopenia - Stable s/p 1U PRBC - Platelets > 100 DM 2 (A1c 8.3%) - Mgmt as per hospitalist HTN - Permissive hypertension, anti-hypertensives when appropriate DVT prophylaxis - Heparin SQ/SCDs Left elbow pain - Will obtain CXR Subjective: Emotional this morning. Has more energy than yesterday. Left elbow hurts. Objective: Vital Signs Temp Pulse Resp BP Pulse Ox 36.9 C 79 22 H 132/59 H 94 07/23/18 07:44 07/23/18 07:44 07/23/18 07:44 07/23/18 07:44 07/23/18 07:44 Laboratory Results 07/23/18 04:30 07/23/18 04:30 07/22/18 07/23/18 07/24/18 05:59 05:59 05:59 Intake Total 750 250 Output Total 1450 530 Balance -700 -280 Physical Exam - Physical Exam General Appearance: WD/WN, alert, no apparent distress EENT: No scleral icterus (R), No scleral icterus (L) Neck: normal inspection Respiratory: No respiratory distress Cardiac/Chest: regular rate, rhythm Abdomen: non-tender, soft, No distended Skin: normal color, warm/dry Extremities: other (left elbow TTP), No pedal edema Neuro/Psych: no motor/sensory deficits, alert, normal mood/affect, oriented x 3 ICD10 Worksheet Patient Problems: Problems Problem Status Onset Acute blood loss anemia Acute S/P CABG x 3 Acute ~07/17/18 Stenosis of coronary stent Acute CAD in [place] artery Chronic Type 2 diabetes mellitus Chronic
[2018-07-23] MEDS: PANTOPRAZOLE SODIUM 40 MG VIAL IVP SCH (08:36)
[2018-07-23] MEDS ORDERED: CEPACOL LOZENGE PO PRN (10:22)
[2018-07-23] MEDS ORDERED: BISACODYL 10 MG SUPP PR PRN (10:22)
[2018-07-23] MEDS ORDERED: LACTULOSE 20 GM/30 ML UDCUP PO PRN (10:22)
--- NOTE | 2018-07-23 11:07 | HOSPPROG ---
Hospitalist Progress Note Assessment/Plan: * CAD s/p CABG -mgmt per CT surgery * DM II - on metformin as outpatient, which is currently held with SARAH -cont SSI -send a1c * Acute respiratory failure - re-intubated - now extubated again * Shock - off pressors * ARF due to ATN -creatinine improving -holding mtf * Thrombocytopenia - plts on the rise -HIT antibody pending * Encephalopathy - query metabolic / medication effect, resolved today, back to baseline' * LUE swelling / pain - check u/s to r/o dvt * Dispo - cont inpt Hospitalist medicine will continue to follow regarding diabetes management Subjective: Pt feels much more like herself today. Says she is very sensitive to medications. Denies CP or SOB. C/O left elbow and arm pain and swelling. No fevers/chills. Objective: Vital Signs Temp Pulse Resp BP Pulse Ox 36.9 C 79 22 H 132/59 H 94 07/23/18 07:44 07/23/18 07:44 07/23/18 07:44 07/23/18 07:44 07/23/18 07:44 Laboratory Results 07/23/18 04:30 07/23/18 04:30 07/22/18 07/23/18 07/24/18 05:59 05:59 05:59 Intake Total 750 250 Output Total 1450 530 Balance -700 -280 - Physical Exam Constitutional: no apparent distress Eyes: PERRL Ears, Nose, Mouth, Throat: moist mucous membranes Cardiovascular: regular rate and rhythym Respiratory: no respiratory distress, clear to auscultation Gastrointestinal: normoactive bowel sounds, soft, non-tender abdomen Skin: warm Musculoskeletal: full muscle strength, other (LUE slightly more edematous) Neurologic: AAOx3 Psychiatric: interacting appropriately ICD10 Worksheet Patient Problems: Problems Problem Status Onset Acute blood loss anemia Acute S/P CABG x 3 Acute ~07/17/18 Stenosis of coronary stent Acute chronic disease mgmt/ transitional care Acute CAD in [place] artery Chronic Type 2 diabetes mellitus Chronic
[2018-07-23] MEDS: SENNOSIDES/DOCUSATE SODIUM TAB PO SCH ×2 (11:19→20:48)
--- NOTE | 2018-07-23 15:38 | SOAPPROG ---
SOAP Progress Note Assessment/Plan: Assessment/Plan: 73 y/o F with a SARAH 2/2 to likely ATN in the setting of cardiogenic shock s/p CABG. SARAH: - Cr improving down to 2.8 today - decent UOP off lasix - No need for HD - Will sign off and arrange f/u as outpt in 4-6 weeks - will need f/u labs after discharge per PCP Shock: Off pressors, keep MAP>65 Anemia: Hgb stable at 9.4g/dL. Transfusion per surgery. BMD: Phos 5.9, hold binder likely will trend down. Continue to monitor lytes and replete as needed. (Ca, Mg, K+) 07/23/18 15:43 Subjective: Patient feels like she is improving daily. [place] out. Objective: Vital Signs Temp Pulse Resp BP Pulse Ox 36.8 C 81 24 H 130/67 H 95 07/23/18 12:00 07/23/18 12:00 07/23/18 12:00 07/23/18 12:00 07/23/18 12:00 Laboratory Results 07/23/18 04:30 07/23/18 04:30 07/22/18 07/23/18 07/24/18 05:59 05:59 05:59 Intake Total 750 250 Output Total 1450 530 Balance -700 -280 Physical Exam - Physical Exam General Appearance: WD/WN, alert, no apparent distress EENT: PERRL/EOMI Neck: non-tender, full range of motion, supple Respiratory: decreased breath sounds, other (cabg scar) Cardiac/Chest: regular rate, rhythm, edema Abdomen: normal bowel sounds, non-tender, soft Skin: pallor Extremities: normal range of motion, non-tender Neuro/Psych: alert ICD10 Worksheet Patient Problems: Problems Problem Status Onset Acute blood loss anemia Acute S/P CABG x 3 Acute ~07/17/18 Stenosis of coronary stent Acute chronic disease mgmt/ transitional care Acute CAD in [place] artery Chronic Type 2 diabetes mellitus Chronic
--- NOTE | 2018-07-23 16:51 | ASMTCMCOM ---
CM Note CM Note Notes: Spoke to patient, her son and daughter about SNF Rehab. She has been at [facility] in the past and has numerous friends who live there. [facility]-referral sent and message left for [facility]. Gave family a list of other SNF's to make a 2nd choice. They wanted to first hear if [facility] might have bed availability. Waiting to hear back from [facility]. Date Signed: 07/23/2018 04:50 PM Electronically Signed By:Zee Clancy LCSW
[2018-07-23] MEDS: AMITRIPTYLINE HCL 50 MG TAB PO SCH (20:48)
[2018-07-23] MEDS ORDERED: SENNOSIDES/DOCUSATE SODIUM TAB PO SCH (21:00)
[2018-07-24] MEDS: HEPARIN 5,000 UNIT/0.5 ML INJ SC SCH ×3 (05:59→22:35)
--- NOTE | 2018-07-24 07:06 | SOAPPROG ---
SOAP Progress Note Assessment/Plan: POD #7: CABGx3 (CHAMBERS-LAD, SVG-OM1, SVG-PDA), EVH L CAD/unstable angina s/p CABGx3 - AL/FC/CTs out - Statin/BB for secondary prevention when appropriate, ASA avoided d/t "allergy " Post-operative hypotension likely secondary to beta-emiliano use - Resolved Acute hypoxic respiratory failure - Extubated without difficulty Acute oliguric renal failure secondary to hypotension - Resolved Acute blood loss anemia with thrombocytopenia - Stable s/p 1U PRBC - Platelets > 100 DM 2 (A1c 8.3%) - Mgmt as per hospitalist HTN - Permissive hypertension, anti-hypertensives when appropriate DVT prophylaxis - Heparin SQ/SCDs Left elbow pain - Small fx at left olecranon - LUE splinted by ortho - Activity as per ortho Disposition - Home vs SNF Subjective: Elbow pain is better. Would like to go home if possible. Sister around to help. Objective: Vital Signs Temp Pulse Resp BP Pulse Ox 36.8 C 89 24 H 114/61 97 07/23/18 20:00 07/24/18 04:00 07/24/18 04:00 07/24/18 04:00 07/24/18 04:00 Laboratory Results 07/23/18 04:30 07/24/18 04:25 07/23/18 07/24/18 07/25/18 05:59 05:59 05:59 Intake Total 250 950 Output Total 530 450 Balance -280 500 Physical Exam - Physical Exam General Appearance: WD/WN, alert, no apparent distress EENT: No scleral icterus (R), No scleral icterus (L) Neck: normal inspection Respiratory: No respiratory distress Cardiac/Chest: regular rate, rhythm Abdomen: non-tender, soft, No distended Skin: normal color, warm/dry Extremities: No pedal edema Neuro/Psych: no motor/sensory deficits, alert, normal mood/affect, oriented x 3 ICD10 Worksheet Patient Problems: Problems Problem Status Onset Acute blood loss anemia Acute S/P CABG x 3 Acute ~07/17/18 Stenosis of coronary stent Acute chronic disease mgmt/ transitional care Acute CAD in [place] artery Chronic Type 2 diabetes mellitus Chronic
[2018-07-24] MEDS: INSULIN REGULAR, HUMAN 100 UNIT/1 ML VIAL STANDARD SC SCH ×4 (08:22→22:35)
[2018-07-24] MEDS: SENNOSIDES/DOCUSATE SODIUM TAB PO SCH ×2 (08:26→20:10)
[2018-07-24] MEDS: PANTOPRAZOLE SODIUM 40 MG VIAL IVP SCH (08:26)
[2018-07-24] MEDS: ACETAMINOPHEN 500 MG TAB PO PRN ×2 (08:47→18:41)
--- NOTE | 2018-07-24 11:25 | HOSPPROG ---
Hospitalist Progress Note Assessment/Plan: * CAD s/p CABG -mgmt per CT surgery * DM II - a1c 7.4, on metformin as outpatient, which is currently held with SARAH -cont to hold mtf, can probably resume within the next week if Cr stays <1.5 -cont SSI for now, bg's 100's * Acute respiratory failure - re-intubated - now extubated again * Shock - off pressors * ARF due to ATN -creatinine improving (4.0 --> 1.5) -holding mtf * Thrombocytopenia - plts on the rise, HIT neg * Encephalopathy - query metabolic / medication effect, resolved, now back to baseline * Left olecranon fracture - splinted per ortho, u/s neg for dt * Dispo - cont inpt, home with HCC vs SNF likely tomorrow, per CV surg Hospitalist medicine will continue to follow regarding diabetes management Subjective: Pt doing well. Ambulating in halls. No complaints Objective: Vital Signs Temp Pulse Resp BP Pulse Ox 36.8 C 83 15 147/74 H 91 L 07/24/18 08:00 07/24/18 08:00 07/24/18 08:00 07/24/18 08:00 07/24/18 08:00 Laboratory Results 07/23/18 04:30 07/24/18 04:25 07/23/18 07/24/18 07/25/18 05:59 05:59 05:59 Intake Total 250 950 Output Total 530 450 Balance -280 500 - Physical Exam Constitutional: no apparent distress Eyes: PERRL Ears, Nose, Mouth, Throat: moist mucous membranes Cardiovascular: regular rate and rhythym Respiratory: no respiratory distress, clear to auscultation Gastrointestinal: normoactive bowel sounds, soft, non-tender abdomen Skin: warm Musculoskeletal: full muscle strength Neurologic: AAOx3 Psychiatric: interacting appropriately ICD10 Worksheet Patient Problems: Problems Problem Status Onset Acute blood loss anemia Acute S/P CABG x 3 Acute ~07/17/18 Stenosis of coronary stent Acute chronic disease mgmt/ transitional care Acute CAD in [place] artery Chronic Type 2 diabetes mellitus Chronic
--- NOTE | 2018-07-24 16:59 | PDINTPN ---
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 No intraoperative complications and extubated per protocol. However, she developed severe hypotension treated with albumin and RBCs along with dopamine and levophed but then developed respiratory distress and required emergent re- intubation. On 07/19 she was more stable but remained intubated per CT surgery. Hemodynamics continued to improve and she was extubated easily on 07/20. * Cardiogenic shock post CABG of unclear etiology. Atenolol given in AM 07/18 but no hemodynamic compromise until 2099. No evidence of sepsis, adrenal and ACS highly unlikely. Now mostly resolved and levophed off with adequate UOP. Dopamine weaned off today. Was on lasix drip for first 24-48 hours but dc'd when uop picked up * Acute respiratory failure with hypoxemia probably related to volume overload in setting of fluid resuscitation. Now mostly resolved after lasix drip. Required reintubation postop, but extubated without difficulty on 07/20. Continue with IS, OOB as tolerated. * SARAH 2/2 shock/ATN. Creatinine up to 4.0 but good uop. Decreasing creatinine last several days. Urine output good * DM- BG 113-145; at goal currently. * Anemia- H/H trending down * Thrombocytopenia- Improving. * Altered Mental Status: ? related to meds, metabolic? Improved * Elevated transaminases: Improving * Posterior chest pain: Likely postoperative, perhaps increasing now due to increased mobility. Plan: Reduce/hold medications as tolerated. Tylenol p.r.n. Pain. Increase activity. Consider Chest x-ray if oxygen needs increase. 07/24/18 16:57 07/24/18 16:57 07/24/18 16:59 Subjective: Complains of some right posterior back pain. Minimal cough, denies dyspnea. Objective: Vital Signs Temp Pulse Resp BP Pulse Ox 36.6 C 57 L 20 150/78 H 93 07/24/18 15:08 07/24/18 15:08 07/24/18 15:08 07/24/18 15:08 07/24/18 15:08 Laboratory Results 07/23/18 04:30 07/24/18 04:25 07/23/18 07/24/18 07/25/18 05:59 05:59 05:59 Intake Total 250 950 Output Total 530 450 Balance -280 500 Physical Exam - Physical Exam General Appearance: alert, no apparent distress EENT: pharynx normal Neck: normal inspection Respiratory: crackles Cardiac/Chest: regular rate, rhythm, friction rub Abdomen: normal bowel sounds, non-tender, soft Skin: normal color, warm/dry Extremities: normal inspection Neuro/Psych: alert, normal mood/affect, oriented x 3 ICD10 Worksheet Patient Problems: Problems Problem Status Onset Acute blood loss anemia Acute S/P CABG x 3 Acute ~07/17/18 Stenosis of coronary stent Acute chronic disease mgmt/ transitional care Acute CAD in [place] artery Chronic Type 2 diabetes mellitus Chronic
[2018-07-24] MEDS: AMITRIPTYLINE HCL 50 MG TAB PO SCH (20:10)
[2018-07-25] MEDS: ACETAMINOPHEN 500 MG TAB PO PRN ×2 (05:26→21:01)
[2018-07-25] MEDS: HEPARIN 5,000 UNIT/0.5 ML INJ SC SCH ×3 (06:46→20:59)
--- NOTE | 2018-07-25 07:55 | SOAPPROG ---
SOAP Progress Note Assessment/Plan: POD #8: CABGx3 (CHAMBERS-LAD, SVG-OM1, SVG-PDA), EVH L CAD/unstable angina s/p CABGx3 - AL/FC/CTs out - Statin/BB for secondary prevention when appropriate, ASA avoided d/t "allergy " Post-operative hypotension likely secondary to beta-emiliano use - Resolved Acute hypoxic respiratory failure - Extubated without difficulty Acute oliguric renal failure secondary to hypotension - Resolved Acute blood loss anemia with thrombocytopenia - Stable s/p 1U PRBC - Platelets > 100 DM 2 (A1c 8.3%) - Mgmt as per hospitalist HTN - Permissive hypertension, anti-hypertensives when appropriate DVT prophylaxis - Heparin SQ/SCDs Left elbow pain - Small fx at left olecranon - LUE splinted by ortho - Activity as per ortho Disposition - Home vs SNF 07/25/18 07:55 Objective: Vital Signs Temp Pulse Resp BP Pulse Ox 36.8 C 84 24 H 134/72 H 94 07/25/18 07:42 07/25/18 07:42 07/25/18 07:42 07/25/18 07:42 07/25/18 07:42 Laboratory Results 07/23/18 04:30 07/25/18 04:05 07/24/18 07/25/18 07/26/18 05:59 05:59 05:59 Intake Total 950 200 Output Total 450 500 Balance 500 -300 ICD10 Worksheet Patient Problems: Problems Problem Status Onset Acute blood loss anemia Acute S/P CABG x 3 Acute ~07/17/18 Stenosis of coronary stent Acute chronic disease mgmt/ transitional care Acute CAD in [place] artery Chronic Type 2 diabetes mellitus Chronic
[2018-07-25] MEDS: SENNOSIDES/DOCUSATE SODIUM TAB PO SCH ×2 (08:37→21:00)
[2018-07-25] MEDS: PANTOPRAZOLE SODIUM 40 MG TAB PO SCH (08:38)
[2018-07-25] MEDS: INSULIN REGULAR, HUMAN 100 UNIT/1 ML VIAL STANDARD SC SCH ×4 (08:43→21:26)
--- NOTE | 2018-07-25 09:42 | SOAPPROG ---
SOAP Progress Note Assessment/Plan: POD #8: CABGx3 (CHAMBERS-LAD, SVG-OM1, SVG-PDA), EVH L CAD/unstable angina s/p CABGx3 - AL/FC/CTs out - Statin/BB for secondary prevention when appropriate, ASA avoided d/t "allergy " Post-operative hypotension likely secondary to beta-emiliano use - Resolved Acute hypoxic respiratory failure - Extubated without difficulty Acute oliguric renal failure secondary to hypotension - Resolved Acute blood loss anemia with thrombocytopenia - Stable s/p 1U PRBC - Platelets > 100 DM 2 (A1c 8.3%) - Mgmt as per hospitalist HTN - Permissive hypertension, anti-hypertensives when appropriate DVT prophylaxis - Heparin SQ/SCDs Left elbow pain - Small fx at left olecranon - LUE splinted by ortho - Awaiting recs from ortho re:activity/restriction/required followed - [facility] ortho office notified of patient's upcoming discharge (Dr. Shepherd) Disposition - SNF Sunday07/25/18 09:47 07/25/18 10:01 Subjective: Doing well but otherwise resistant to SNF. She prefers to go home under sister' s care. Requesting home trazodone for sleep. Objective: Vital Signs Temp Pulse Resp BP Pulse Ox 36.8 C 84 24 H 134/72 H 94 07/25/18 07:42 07/25/18 07:42 07/25/18 07:42 07/25/18 07:42 07/25/18 07:42 Laboratory Results 07/23/18 04:30 07/25/18 04:05 07/24/18 07/25/18 07/26/18 05:59 05:59 05:59 Intake Total 950 200 Output Total 450 500 Balance 500 -300 - Physical Exam General Appearance: WD/WN, alert, no apparent distress EENT: No scleral icterus (R), No scleral icterus (L) Neck: normal inspection Respiratory: No respiratory distress, nasal cannula oxygen decreased to 1 L Cardiac/Chest: regular rate, rhythm Abdomen: non-tender, soft, No distended Skin: normal color, warm/dry Extremities: No pedal edema Neuro/Psych: no motor/sensory deficits, alert, normal mood/affect, oriented x 3 Incisons: clean, dry, intact, no erythema ICD10 Worksheet Patient Problems: Problems Problem Status Onset Acute blood loss anemia Acute S/P CABG x 3 Acute ~07/17/18 Stenosis of coronary stent Acute chronic disease mgmt/ transitional care Acute CAD in [place] artery Chronic Type 2 diabetes mellitus Chronic
--- NOTE | 2018-07-25 11:06 | ASMTCMCOM ---
CM Note CM Note Notes: 07/25/2018 Met w/pt to discuss discharge needs. [facility] declined pt. Pt agreed to referrals to [facility] in [place], [facility] and [facility]. [facility] is first choice. Notified Carlos Walls. Case Management d/c poc: SNF rehab pending acceptance. Case Management to follow. Date Signed: 07/25/2018 11:06 AM Electronically Signed By:Elisabeth De Los Santos RN
--- NOTE | 2018-07-25 13:54 | GCON ---
HISTORY OF PRESENT ILLNESS: Patient is a pleasant 73-year-old RHD female with a history of left elbow pain, which began following no inciting injury but has been present since her hospital admittance on 07/17/2018 for a CABG procedure performed 07/17/2018 without difficulty. Since recovery from that surgery, she has had continued left elbow pain with pain over the medial aspect of the elbow. An x-ray was ordered which showed a non-displaced lateral malleolus fracture and a different service, unsure of the provider or provider group, placed a posterior LAS on her. We are now being consulted for further evaluation of her symptoms. SANE: 40%. Denies history of inciting injury that she can recall. Has worsening pain with active range of motion but it has not worsened since her hospital course, maintains a baseline 6/10. She denies any abnormal numbness or tingling , worsening change in heat or color of the extremity, worsening change in distal ROM or strength. She has otherwise been doing well. She does not recall any inciting previous injuries or falls. She states she has been bearing some weight to the left upper extremity while in splint to help her feel stable with her walker, resting and assisting herself in the walker with use of the extremity. ROS: An otherwise 10-point review of systems is negative except for as stated above. PAST MEDICAL HISTORY: Pertinent for CVD, Type 2 DM, lung cancer, possible history of hepatitis, though details still unknown by herself and her family, depression, hyperlipidemia, hypertension, IBS, migraines, urinary tract infections, as well as history of multiple PCIs. FAMILY HISTORY: Pertinent for numerous family members with cardiovascular disease and hypertension in her sisters and brothers. No history of blood clots or bleeding disorders. No history of DM. HOME MEDICATIONS: Include Restoril, Tylenol, Elavil, Tenormin, Zyrtec, vitamin D3, herbal supplements, isosorbide dinitrate, lisinopril, omega-3, amlodipine, metformin, and trazodone. ALLERGIES: Patient has an aspirin allergy, causes rash; codeine allergy causes vomiting; penicillin allergy causes rash; and tetanus vaccines cause hand and arm extremity swelling. SOCIAL HISTORY: Patient lives at home with her . She has numerous family members in room: sisters and son. She is able to make her own power of environmental attorney decisions at this time. She is a full code. PAST SURGICAL HISTORY: Coronary bypass surgery 07/17/2018, a lobectomy in 2011 for lung cancer, and a right upper extremity lipoma removal, she does not recall the year PHYSICAL EXAM: GENERAL: Patient is alert and oriented, able to respond appropriately to questions, in no acute distress. Family in room at bedside, good rapport. HEENT: Normocephalic, atraumatic. EOMs intact. Moist buccal mucosa. Patent nares. Hearing intact. NECK: No lymphadenopathy. Full AROM. NTTP throughout. Negative Lhermitte. Negative Spurling b/l. CV: Nonlabored breathing. No diaphoresis. ABDOMEN: Soft, nontender, nondistended. SPINE: NTTP throughout. MUSCULOSKELETAL: Focalized exam of bilateral upper extremities: Upon takedown of splint, mild edema and ecchymosis located over the medial epicondyle of her left upper extremity. Otherwise, no erythema, edema, ecchymosis, or calor. Skin is intact throughout BUE. All compartments are soft. Mildly TTP over the lateral aspect and severe TTP over medial aspect and epicondyle of her left elbow. FROM of right upper extremity with no deficits noted. AROM of left upper extremity: 5 to 95-degree flexion/extension of the left elbow, otherwise, FROM in supination and pronation. Full range of motion distally in the left upper extremity with 5/[address] strength present. DNVI B/L with no focal deficits noted. 5/[address] installer strength b/l. Brisk cap refill present B/L. She has negative passive stretch B/L in both upper and lower extremities. Bilateral lower extremities: No erythema, edema, ecchymosis, or calor. NTTP throughout. Negative pelvic squeeze test. FROM. Able to ambulate without difficulty. 5/5 strength present B/L with calf soft, supple, NTTP B/L. SCDs and BÁRBARA hose are not present during physical exam today. NEURO: Alert and oriented. Able to respond appropriately to questions. SKIN: Warm and dry. No rashes, lesions, or open sores seen at this time. VITAL SIGNS: She is mildly hypertensive at 143/74, afebrile at this time. SECONDARY SURVEY: Negative except for as stated above. X-RAYS: Left elbow nondisplaced fracture of the medial epicondyle. No other fractures, malalignments, or deformities are seen. ASSESSMENT: Left elbow closed medial epicondyle nondisplaced fracture. PLAN: At this time, patient's physical exam findings and x-rays were explained at length. We have recommended the use of a sling, NWB to the left upper extremity at this time; please do not use extremity to help bear weight in the walker as this can displace her fracture. Can begin gentle A/AAROM and PROM of the elbow. No smoking or NSAIDs as this can impair fracture healing. RTC with Dr. Shepherd in 10-12 days or p.r.n. additional questions or concerns, which may arise, call our office at [phone] to schedule; we will repeat XRs at that time. Advised patient to watch for any worsening pain, abnormal numbness or tingling, worsening change in heat or color of the extremity, worsening change in range of motion or strength, and to seek immediate medical attention if seen. She understands and agrees with this course of action. We thank you for the opportunity to assist in the care of this patient. Patient was seen and examined in conjunction with Dr. Shepherd. Questions or concerns can be directed to Dr. Shepherd's office at [phone]. /[id number]/MODL MTDD
--- NOTE | 2018-07-25 16:02 | HOSPPROG ---
Hospitalist Progress Note Assessment/Plan: CARDIOTHORACIC SURGERY PATIENT STATUS POST BYPASS, FOLLOWED BY HOSPITAL MEDICINE SERVICE FOR DIABETES CONTROL DIAGNOSES: * CAD s/p CABG -mgmt per CT surgery * DM II - a1c 7.4, on metformin as outpatient, which is currently held with SARAH -CREATININE CONTINUES TO IMPROVE, WILL LIKELY START BACK ON METFORMIN TOMORROW -cont SSI for now, bg's 100's * Acute respiratory failure - re-intubated - now extubated again * Shock - off pressors * ARF due to ATN -creatinine improving (4.0 --> 1.2) * Thrombocytopenia - plts on the rise, HIT neg * Encephalopathy - query metabolic / medication effect, resolved, now back to baseline * Left olecranon fracture - splinted per ortho, u/s neg for dt SUBJECTIVE: Feels better overall Some sore throat from the anesthesia Still a bit wheezy feeling in her chest but no pain Eating well OBJECTIVE Vitals reviewed: Some hypertension and tachypnea, 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, 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, 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: Exam: alert oriented skin warm dry color ok resps not labored lungs diminished breath sounds heart regular abd soft nondistended nontender, bowel sounds present iv site ok Lab data: Blood sugars in the 115-170 range which is within target range for inpatient care Objective: Vital Signs Temp Pulse Resp BP Pulse Ox 36.8 C 85 24 H 158/95 H 96 07/25/18 15:43 07/25/18 15:43 07/25/18 15:43 07/25/18 15:43 07/25/18 15:43 Laboratory Results 07/23/18 04:30 07/24/18 07/25/18 07/26/18 06:59 06:59 06:59 Intake Total 950 200 Output Total 450 500 Balance 500 -300 ICD10 Worksheet Patient Problems: Problems Problem Status Onset Acute blood loss anemia Acute S/P CABG x 3 Acute ~07/17/18 Stenosis of coronary stent Acute chronic disease mgmt/ transitional care Acute CAD in [place] artery Chronic Type 2 diabetes mellitus Chronic
[2018-07-25] MEDS: AMITRIPTYLINE HCL 50 MG TAB PO SCH (16:44)
[2018-07-25] MEDS ORDERED: ATENOLOL 25 MG TAB PO SCH (21:00)
[2018-07-25] MEDS ORDERED: traZODone 50 MG TAB PO SCH ×2 (21:00)
[2018-07-26] MEDS: HEPARIN 5,000 UNIT/0.5 ML INJ SC SCH ×2 (05:26→14:46)
[2018-07-26] MEDS: ACETAMINOPHEN 500 MG TAB PO PRN (08:49)
[2018-07-26] MEDS: PANTOPRAZOLE SODIUM 40 MG TAB PO SCH (08:51)
[2018-07-26] MEDS: SENNOSIDES/DOCUSATE SODIUM TAB PO SCH ×2 (08:51→09:32)
[2018-07-26] MEDS: INSULIN REGULAR, HUMAN 100 UNIT/1 ML VIAL STANDARD SC SCH ×2 (08:52→13:11)
--- NOTE | 2018-07-26 09:09 | SOAPPROG ---
SOAP Progress Note Assessment/Plan: POD #9: CABGx3 (CHAMBERS-LAD, SVG-OM1, SVG-PDA), EVH L CAD/unstable angina s/p CABGx3 - AL/FC/CTs out - No statin due to intolerance. Per Dr. Cleaning's note, multiple failed trials in the past. - ASA avoided d/t "allergy" - Increase atenolol to home dose 50 mg. HR and BP have been elevated. - Lasix 40 mg/K+ 10 mg PO once daily, up 3 kg - May need home oxygen eval Post-operative hypotension likely secondary to beta-emiliano use - Resolved Acute hypoxic respiratory failure - resolved, extubated without difficulty Acute oliguric renal failure secondary to hypotension - Resolved Acute blood loss anemia with thrombocytopenia - Stable s/p 1U PRBC - Platelets > 100 DM 2 (A1c 8.3%) - Mgmt as per hospitalist HTN - Permissive hypertension DVT prophylaxis - Heparin SQ/SCDs daily Left elbow pain - Small fx at left olecranon & LUE splinted by ortho - Seen by Dr. Shepherd, appreciate consult 07/25 Disposition - SNF today Subjective: Doing well today. Awaiting approval for planned SNF today. Some mild pain not relieved with Tylenol. Tramadol ordered. Objective: Vital Signs Temp Pulse Resp BP Pulse Ox 36.7 C 88 20 142/84 H 90 L 07/26/18 07:30 07/26/18 07:30 07/26/18 07:30 07/26/18 07:30 07/26/18 07:30 Laboratory Results 07/23/18 04:30 07/25/18 14:45 07/25/18 07/26/18 07/27/18 05:59 05:59 05:59 Intake Total 200 1200 Output Total 500 700 Balance -300 500 General: NAD, sitting upright HEENT: MMM Resp: nasal cannula oxygen 3 L, bibasilar crackles Cardiac: NSR, no m/r/g, no edema GI: soft, nt, nd Extremities: left elbow splint Incisions: sternum - clean, dry, intact; right thigh - clean, dry, intact UOP - 500/200/500 ICD10 Worksheet Patient Problems: Problems Problem Status Onset Acute blood loss anemia Acute S/P CABG x 3 Acute ~07/17/18 Stenosis of coronary stent Acute chronic disease mgmt/ transitional care Acute CAD in [place] artery Chronic Type 2 diabetes mellitus Chronic
[2018-07-26] MEDS ORDERED: POTASSIUM CL 10 MEQ TAB PO ONE (09:19)
[2018-07-26] MEDS ORDERED: FUROSEMIDE 40 MG TAB PO SCH (09:30)
[2018-07-26] MEDS: traMADol 50 MG TAB PO PRN ×2 (09:31→15:42)
[2018-07-26 11:03] VITALS: BP 136/79
--- NOTE | 2018-07-26 13:51 | PDIAF ---
- Diagnosis Diagnosis: s/p CABG, post-op elbow fracture, SARAH Code Status: Full Code - Medication Management Additional Medication Instructions: Hold lasix when back to baseline weight (52 kg). Stop K if off Lasix. FSBG ACHS or per protocol. Call PCP with ISS concerns. Discharge Medications: electronically signed and located in the Home Medication List. PICC Care - Routine: N/A - Orders Services needed: Registered Nurse (cardiorespiratory and wound monitoring ), Physical Therapy (BID and sternal precautions x 4 weeks), Occupational Therapy ( once daily ) Isolation Type: None Oxygen: PRN SpO2 <90% Diet Recommendation: ADA 2000 consistent carb Diet Texture: Regular Texture Diet, Thin Liquids, Meds Whole w/Liquids Weigh Patient: daily Martinez: Not applicable Wound Care Instructions: see additional instructions Activity/Weight Bearing Restrictions: see additional instructions Additional Instructions: Orthopedic Instructions NWB LUE in sling. May be removed for hygiene and A/AA/PROM L elbow. Encourage L shoulder/wrist/hand ROM. Cardiac Surgery Instructions Call [facility] cardiac rehab to enroll in phase 2 classes once released from rehab. Sternal precautions x 4 weeks. Avoid lifting > 10lbs with an outstretched arm. Avoid push/pull activities. Cleanse wounds once daily with soap and water. Avoid underwater immersion (pool , hot tub, bath) until scabs off. Ok to leave all wounds open to air. Avoid creams or ointments until scabs off. Elevate low legs at rest. Avoid prolonged standing or dangling. Log daily vital signs: weight, resting heart rate over 1 minute, blood pressure , +/- pulse oximetry. Call [facility] for overnight weight gain > 2lbs, weekly gain > 5lbs or worsening leg swelling. Call [facility] for resting heart rate > 120 or < 60 OR for systolic blood pressure consistently < 90 or > 160. Target oxygen saturation > 89%. Adjustments per cardiac rehab. Please obtain a chest xray prior to surgical appointment. Use requisition form attached to appointment card. Chest x-rays don't require an appointment. Go to the Emergency Room entrance at the [facility] location. Sign in at the computer kiosk in the entryway. You will be given a number & may sit in the waiting area until called. You will be registered and directed to Imaging on the 1st floor. This process can take up to an hour. Please allow at least 30 min before your appt to get x-ray taken. Ok to use [id number] medications for iron supplementation, bowel function or pain. Consider Tylenol 500-650 mg with meals and before bed. Max daily dose of Tylenol 3000 mg. Avoid nonsteroidal anti-inflammatories (ie. Ibuprofen, advil, motrin, aleve) x 3 months for interference with beneficial effects of aspirin on graft flow. - Labs/Radiology BMP Date: 07/31/18 (results to [facility]/Dr. Fountain RN) CBC w/diff Date: 07/31/18 (results to [facility]/Dr. Fountain RN) Imaging Orders: CXR prior Dr. Fountain appt Call or Fax Lab and Imaging Results to: attention: Zehra Kapadia RN - Dr. Fountain - Follow Up Care Current Providers and Referrals: Lam Patel MD [Medical Doctor] - Seamus Whatley MD [Primary Care Provider] - (follow up blood sugar control ) Kg Shepherd MD [Medical Doctor] - (call with any ortho/sling questions) Ifeanyi Fountain MD [Medical Doctor] - 08/06/18 10:45 am Bob Cleaning MD [Medical Doctor] -
--- NOTE | 2018-07-26 14:02 | ASMTLACE ---
LACE Length of stay for Answers: 7-13 days current admission Acuity / Level of Answers: Yes Care: Did the patient have an inpatient admission? Comorbidities - select Answers: Coronary Artery Disease all that apply Diabetes (uncontrolled or controlled) Opioid dependence / Chronic pain Other Notes: HTN; Hx of DVT; HLD # of Emergency department Answers: 0 visits in the last 6 months Social determinants Answers: Mental health diagnosis (anxiety, depression, pers onality disorders, etc.) Score: 19 Date Signed: 07/26/2018 02:01 PM Electronically Signed By:VALERIA Richards
--- NOTE | 2018-07-26 14:04 | ASMTDCNOTE ---
Case Management Discharge Discharge Order Complete? Answers: Yes Patient to Obtain Answers: Other Notes: [facility] Transportation Arranged Answers: Other Notes: [facility] will Pick (Date 07/26/2018 03:30 PM & Time) Faxed Final Orders Answers: Yes Agency/Facility Transfer Answers: Yes Report Printed & Faxed to Receiving Agency Discharge Comments Notes: Pt is discharging to [facility] today. D/C order, meds, facility transfer sent via [employer]. Transportation arranged by [employer] [facility] [employer] through [facility]. Date Signed: 07/26/2018 02:03 PM Electronically Signed By:VALERIA Richards
--- NOTE | 2018-07-26 14:05 | ASDISCHSUM ---
Discharge Information Plan Status:SNF Medically Cleared to Leave:07/25/2018 Discharge Date:07/25/2018 CM D[facility]C [facility]C [facility] Projected Discharge Date:07/26/2018 11:00 AM Transportation at D/C:[facility] Discharge Delay Reason: Follow-Up Date:07/26/2018 11:00 AM Discharge Slot: Final Diagnosis:CAD, CABG Placement Information Referral Type:*Chcf/SNF Referral ID:[id number] Provider Name:[facility] [place] Address 1:[address] Address 2: City:[place] Selection Factors: State:[place] Referral Type:*Home Health Care Services Referral ID:[id number] Provider Name: Address 1: Phone Number: Address 2: Fax Number: City: Selection Factors: State: Patient Contact Information Contact Name:MERARI Relationship:Son Address: City: Alternate Phone: State/Zip Code: Email: Financial Information Financial Class:Medicare Primary Plan Desc:MEDICARE INPATIENT Primary Plan Number:[id number] Secondary Plan Desc:[facility] Secondary Plan Number:[id number] Assessment Information LACE LACE Length of stay for Answers: 7-13 days current admission Acuity / Level of Answers: Yes Care: Did the patient have an inpatient admission? Comorbidities - select Answers: Coronary Artery Disease all that apply Diabetes (uncontrolled or controlled) Opioid dependence / Chronic pain Other Notes: HTN; Hx of DVT; HLD # of Emergency department Answers: 0 visits in the last 6 months Social determinants Answers: Mental health diagnosis (anxiety, depression, pers onality disorders, etc.) Score: 19 Date Signed: 07/26/2018 02:01 PM Electronically Signed By:VALERIA Richards [facility] Initial CM Assessment Living Arrangements What is your living Answers: With Spouse arrangement? Who do you live with? Type Of Residence What kind of residence do Answers: House you live in? Discharge Plan Comments Coordination Status Comments Notes: Patient is a 73yo female with a hx of coronary artery disease and multiple previous stents, who has recently developed progressive and unstable angina. Patient is going to surgery for a triple coronary artery bypass grafting. OT/PT/RESERVE OPERATOR/cardiac rehab evals ordered. D/C plan TBD. CM will follow. Date Signed: 07/18/2018 12:38 PM Electronically Signed By:Christelle Donato LCSW [facility] CM Progress Note CM Note CM Note Notes: Patient is making clinical progress: off some pressors, Creatnine rising, and anemia improving. Attempts will be made to extubate. She is supported by her and two sons. PT/OT/RESERVE OPERATOR will evaluate when appropriate. Case Management will follow. Date Signed: 07/20/2018 12:03 PM Electronically Signed By:Regina Rushing RN [facility] CM Progress Note CM Note CM Note Notes: Spoke to patient, her son and daughter about SNF Rehab. She has been at [facility] in the past and has numerous friends who live there. [facility]-referral sent and message left for [facility]. Gave family a list of other SNF's to make a 2nd choice. They wanted to first hear if [facility] might have bed availability. Waiting to hear back from [facility]. Date Signed: 07/23/2018 04:50 PM Electronically Signed By:Zee Clancy LCSW [facility] CM Progress Note CM Note CM Note Notes: 07/25/2018 Met w/pt to discuss discharge needs. [facility] declined pt. Pt agreed to referrals to [facility] and [facility]. [facility] is first choice. Notified [facility] Huizar[facility]ey. Case Management d/c poc: SNF rehab pending acceptance. Case Management to follow. Date Signed: 07/25/2018 11:06 AM Electronically Signed By:Elisabeth De Los Santos RN Case Management Discharge Plan Note Case Management Discharge Discharge Order Complete? Answers: Yes Patient to Obtain Answers: Other Notes: [facility] Transportation Arranged Answers: Other Notes: [facility] will Pick (Date 07/26/2018 03:30 PM & Time) Faxed Final Orders Answers: Yes Agency/Facility Transfer Answers: Yes Report Printed & Faxed to Receiving Agency Discharge Comments Notes: Pt is discharging to [facility] today. D/C order, meds, facility transfer sent via [employer]. Transportation arranged by [facility] through [facility]. Date Signed: 07/26/2018 02:03 PM Electronically Signed By:VALERIA Richards Intervention Information Intervention Type:*IM-Signed Date of Service:07/26/2018 12:14 PM Patient Type:Inpatient Staff Member:Wanda Bradley Hours: Discipline: Severity: Comment:
--- NOTE | 2018-07-26 14:44 | PDDCSUM ---
Discharge Summary Discharge Summary: DATE OF ADMISSION: 07/17/2018 DATE OF DISCHARGE: 07/26/2018 DISPOSITION: Residential Facility - [facility] [place] PRINCIPAL ADMISSION DIAGNOSES: 1. Severe multivessel coronary artery disease with history of PCI 2. Unstable angina 3. Hyperlipidemia 4. Hypertension 5. Type 2 Diabetes Mellitus PRINCIPAL DISCHARGE DIAGNOSES: As above plus, 1. Left elbow closed medial epicondyle nondisplaced fracture 2. Acute oliguric renal failure, resolved 3. Acute hypoxic respiratory failure requiring reintubation, resolved 4. Acute blood loss anemia with thrombocytopenia, stable PROCEDURE PERFORMED: 1. CABGx3 with left internal mammary artery to the left anterior descending, saphenous vein graft from the aorta to marginal 1, saphenous vein graft from the aorta to posterior descending artery, endoscopic vein harvest from the right leg, performed on 07/17/[address] Bhatia. 2. Ultrasound Abdomen Retroperitoneal Complete on 07/19/18 to rule out renal obstruction HISTORY OF PRESENT ILLNESS: 73F with known CAD s/p multiple PCI with c/o chest pain at rest and exertion who presents electively for CABG. Pt describes the pain as substernal and radiates up her neck and down her left arm. Rest and nitro relieves the pain. She denies pre-syncope, syncope, weakness, SOB, chest palpitations, urinary issues. Sometimes her LE swell. Pt has a pmhx significant for HTN, DM2, and depression. She is s/p RLLobectomy for lung cancer in 1994. No radiation to the chest. No other significant chest surgeries. PERTINENT PAST MEDICAL HISTORY: 1. History of lung cancer s/p RLLobectomy 2. Depression 3. Possible hepatitis 4. History of blood clots MEDICATIONS ON ADMISSION: Amitriptyline 100 mg PO every other night Atenolol 100 mg PO daily Lisinopril 20 mg PO daily Norvasc 10 mg PO daily Plavix 75 mg PO daily Temazepam 15 mg PO daily PRN ALLERGIES/SENSITIVITIES: Aspirin (GI intolerance/rash) Codeine Penicillin Tetanus Vaccines/Toxoid CONSULTANTS: 1. Dr. Jericho Wright, Pulmonary Critical Care 2. Dr. Shepherd, Orthopedics 3. Dr. Janessa Cooley, Nephrology 4. Internal Medicine Hospitalist Service re: diabetes management HOSPITAL COURSE: Patient was admitted to the hospital on 07/17/18 for elective 3v CABG by Dr. Anthony Eubanks. After an unremarkable surgery, she was transferred to the ICU post- operatively intubated and sedated. She was extubated and was transferred to the PCU on POD#1. Hospital medicine was consulted to manage patients uncontrolled diabetes (a1c 8.3%). She was reintubated and started on vasopressors dopamine and levophed after developing hypotension thought to be secondary to routine beta emiliano therapy although this is still not clear. She developed acute oliguric renal failure secondary to hypotension and nephrology was consulted ( Cr 0.6->2.7). Abdominal US was negative for renal obstruction. Her kidney function trended down and hemodialysis was not necessary. She was weaned from vasopressors and the ventilator on 11 and transferred back to the PCU on . During this time, she complained that her left elbow hurt and xray was obtained. This showed left elbow closed medial epicondyle nondisplaced fracture. The cause is unknown. This was splinted and the patient was seen by Dr. Loredo service prior to discharge. She was discharged to a retirement facility. DISCHARGE CLINICAL INFORMATION: Sternum grossly stable. Sternotomy CDI, sutured, +Dermabond. HR 91 BP 136/79 SpO2 95% 3L NC 52 kg at admission, 55 kg at discharge WBC 9.53, Hgb 9.4, HCT 28.2, Plt 162 , Na 137 , K 4.2, Cr 1.1 DISCHARGE MEDICATIONS: As on admission with the following adjustments: Discontinue these medications: 1. Trazadone 100 mg PO HS (dose reduced to 25-50 mg PO HS) 2. Norvasc 10 mg PO HS 3. Lisinopril 20 mg PO daily 4. Isosorbide Dinitrate 10 mg PO BID NEW prescriptions: 1. Lasix 40 mg PO daily with Klor-Con 10 meq PO daily (take together) 2. Tramadol 50 mg PO q6 hours PRN pain 3. Trazadone 20-50 mg PO HS 4. ISS Regular PRN hyperglycemia (while in retirement facility) FOLLOW UP APPOINTMENTS: 1. CV surgery: with Dr. Bhatia at [facility] on 08/06/18 @ 10:45 am. 2. Cardiology: with Dr. Cleaning at [facility] within 4-6 weeks. Appointment to be established during surgical visit. 3. Follow up with Dr. Shepherd from orthopedics 10-12 days after discharge. 4. Follow up with your primary care physician, Jorge Bal. 5. Follow up with Dr. Whatley for blood sugar control. FOLLOW UP TESTING: CXR prior to surgical appointment. CBC and BMP scheduled 07/31/18 in Residential Facility.
--- NOTE | 2018-07-26 15:25 | HOSPPROG ---
Hospitalist Progress Note Assessment/Plan: CARDIOTHORACIC SURGERY PATIENT STATUS POST BYPASS, FOLLOWED BY HOSPITAL MEDICINE SERVICE FOR DIABETES CONTROL DIAGNOSES: * CAD s/p CABG -mgmt per CT surgery * DM II - a1c 7.4, on metformin as outpatient, which is currently held with SARAH -continued improvement in creatinine so OK start metformin today which has been ordered by surgery -will likely be able to stop sliding scale insulin but follow sugars closely * Acute respiratory failure - re-intubated - now extubated again * Shock - off pressors * ARF due to ATN -creatinine improving (4.0 --> 1.1) * Thrombocytopenia - plts on the rise, HIT neg * Encephalopathy - query metabolic / medication effect, resolved, now back to baseline * Left olecranon fracture - splinted per ortho, u/s neg for dt SUBJECTIVE: Feels better overall Some sore throat from the anesthesia Still a bit wheezy feeling in her chest but no pain Eating well OBJECTIVE Vitals reviewed: Intermittent mild hypertension, other vitals stable, 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 , 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, 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: Sinus Exam: alert oriented skin warm dry color ok resps not labored lungs diminished breath sounds heart regular abd soft nondistended nontender, bowel sounds present iv site ok Lab data: Blood sugars remain in ideal range for inpatient care Creatinine down to 1.1 stable electrolytes Objective: Vital Signs Temp Pulse Resp BP Pulse Ox 36.6 C 91 20 136/79 H 95 07/26/18 11:03 07/26/18 11:03 07/26/18 11:03 07/26/18 11:03 07/26/18 11:03 Laboratory Results 07/23/18 04:30 07/25/18 14:45 07/25/18 07/26/18 07/27/18 06:59 06:59 06:59 Intake Total 200 1200 Output Total 500 700 Balance -300 500 ICD10 Worksheet Patient Problems: Problems Problem Status Onset Acute blood loss anemia Acute S/P CABG x 3 Acute ~07/17/18 Stenosis of coronary stent Acute chronic disease mgmt/ transitional care Acute CAD in [place] artery Chronic Type 2 diabetes mellitus Chronic
--- NOTE | 2018-07-26 15:27 | PDIAF ---
- Diagnosis Diagnosis: s/p CABG, post-op elbow fracture, SARAH Code Status: Full Code - Medication Management Additional Medication Instructions: Hold lasix when back to baseline weight (52 kg). Stop K if off Lasix. FSBG ACHS or per protocol. Call PCP with ISS concerns. Discharge Medications: electronically signed and located in the Home Medication List. PICC Care - Routine: N/A - Orders Services needed: Registered Nurse (cardiorespiratory and wound monitoring ), Physical Therapy (BID and sternal precautions x 4 weeks), Occupational Therapy ( once daily ) Isolation Type: None Oxygen: PRN SpO2 <90% Diet Recommendation: ADA 2000 consistent carb Diet Texture: Regular Texture Diet, Thin Liquids, Meds Whole w/Liquids Weigh Patient: daily Martinez: Not applicable Wound Care Instructions: see additional instructions Activity/Weight Bearing Restrictions: see additional instructions Additional Instructions: Orthopedic Instructions Non Weight Bearing LUE in sling. May be removed for hygiene and A/AA/PROM L elbow. Encourage L shoulder/wrist/hand ROM. Cardiac Surgery Instructions Call [facility] cardiac rehab to enroll in phase 2 classes once released from rehab. Sternal precautions x 4 weeks. Avoid lifting > 10lbs with an outstretched arm. Avoid push/pull activities. Cleanse wounds once daily with soap and water. Avoid underwater immersion (pool , hot tub, bath) until scabs off. Ok to leave all wounds open to air. Avoid creams or ointments until scabs off. Elevate low legs at rest. Avoid prolonged standing or dangling. Log daily vital signs: weight, resting heart rate over 1 minute, blood pressure , +/- pulse oximetry. Call [facility] for overnight weight gain > 2lbs, weekly gain > 5lbs or worsening leg swelling. Call [facility] for resting heart rate > 120 or < 60 OR for systolic blood pressure consistently < 90 or > 160. Target oxygen saturation > 89%. Adjustments per cardiac rehab. Please obtain a chest xray prior to surgical appointment. Use requisition form attached to appointment card. Chest x-rays don't require an appointment. Go to the Emergency Room entrance at the [facility] location. Sign in at the computer kiosk in the entryway. You will be given a number & may sit in the waiting area until called. You will be registered and directed to Imaging on the 1st floor. This process can take up to an hour. Please allow at least 30 min before your appt to get x-ray taken. Ok to use [id number] medications for iron supplementation, bowel function or pain. Consider Tylenol 500-650 mg with meals and before bed. Max daily dose of Tylenol 3000 mg. Avoid nonsteroidal anti-inflammatories (ie. Ibuprofen, advil, motrin, aleve) x 3 months for interference with beneficial effects of aspirin on graft flow. - Labs/Radiology BMP Date: 07/31/18 (results to [facility]/Dr. Fountain RN) CBC w/diff Date: 07/31/18 (results to [facility]/Dr. Fountain RN) Imaging Orders: CXR prior Dr. Fountain appt Call or Fax Lab and Imaging Results to: attention: Zehra Kapadia RN - Dr. Fountain - Follow Up Care Current Providers and Referrals: Lam Patel MD [Medical Doctor] - Seamus Whatley MD [Primary Care Provider] - (follow up blood sugar control ) Kg Shepherd MD [Medical Doctor] - (call with any ortho/sling questions) Ifeanyi Fountain MD [Medical Doctor] - 08/06/18 10:45 am Bob Cleaning MD [Medical Doctor] -
[2018-07-26] MEDS ORDERED: ONDANSETRON DISINTEGRATING 4 MG TAB PO ONE (17:01)
[2018-07-26] MEDS ORDERED: INSULIN REGULAR HUMAN 100 UNIT/ML UNIT SC SCH (17:30)
[2018-07-26] MEDS ORDERED: metFORMIN HCL 500 MG TAB PO SCH (18:00)
[2018-07-27] MEDS ORDERED: OMEGA-3 FATTY ACIDS 1,000 MG CAP PO SCH (09:00)
== END 2018-07-26 17:21 | DRG 235 ==
LOC: F2W 06:03 → F2N 07:20 → F2W 07-24 11:25
PROVIDERS: ADMIT Family Medicine; ATTEND Thoracic Surgery (Cardiothoracic Vascular Surgery)
PROC: 02100Z9 Bypass Coronary Artery, One Artery from Left Internal Mammary, Open Approach (ICD-10-PCS; principal; 2018-07-17 07:15)
PROC: 5A1221Z Performance of Cardiac Output, Continuous (ICD-10-PCS; principal; 2018-07-17 07:15)
PROC: 06BQ4ZZ Excision of Left Saphenous Vein, Percutaneous Endoscopic Approach (ICD-10-PCS; principal; 2018-07-17 07:15)
PROC: 021109W Bypass Coronary Artery, Two Arteries from Aorta with Autologous Venous Tissue, Open Approach (ICD-10-PCS; principal; 2018-07-17 07:15)
PROC: 5A1945Z Respiratory Ventilation, 24-96 Consecutive Hours (ICD-10-PCS; 2018-07-18)
PROC: 0BH17EZ Insertion of Endotracheal Airway into Trachea, Via Natural or Artificial Opening (ICD-10-PCS; 2018-07-18)
DX: I25.110 Atherosclerotic heart disease of native coronary artery with unstable angina pectoris (principal); N17.0 Acute kidney failure with tubular necrosis; J96.01 Acute respiratory failure with hypoxia; D62 Acute posthemorrhagic anemia; T81.10XA Postprocedural shock unspecified, initial encounter; T44.7X5A Adverse effect of beta-adrenoreceptor antagonists, initial encounter; I95.81 Postprocedural hypotension; E87.2 Acidosis; E11.65 Type 2 diabetes mellitus with hyperglycemia; S42.445A Nondisplaced fracture (avulsion) of medial epicondyle of left humerus, initial encounter for closed fracture; X58.XXXA Exposure to other specified factors, initial encounter; Y92.239 Unspecified place in hospital as the place of occurrence of the external cause; D69.59 Other secondary thrombocytopenia; I10 Essential (primary) hypertension; E78.5 Hyperlipidemia, unspecified; E87.6 Hypokalemia; F32.9 Major depressive disorder, single episode, unspecified; Z85.118 Personal history of other malignant neoplasm of bronchus and lung; Z90.2 Acquired absence of lung [part of]; Z95.5 Presence of coronary angioplasty implant and graft; Z86.718 Personal history of other venous thrombosis and embolism
CPT/HCPCS: 82435-PO; 82565-PO; 82947-PO; 83605-PO; 84132-PO; 84295-PO; 84520-PO; 85014-PO; 86022-90; 92526-GN; 92610-GN; 97116-GP; 97162-GP; 97166-GO; 97530-GP; 97535-GO; C1768; G8978-GP-CJ; G8979-GP-CI; G8987-GO-CL; G8988-GO-CJ; G8996-GN-CH; G8996-GN-CI; G8997-GN-CH; G8997-GN-CI; G8998-GN-CH; G8998-GN-CI; J0153; J0282; J0690; J1170; J1265; J1644; J1815; J1885; J1940; J2001; J2150; J2250; J2260; J2270; J2370; J2405; J2440; J2704; J2720; J2765; J2930; J3010; J3475; J3480; P9016; P9041

== ENCOUNTER → 2018-08-06 | Outpatient (CLI) | payer OTHER | LOC: FIMAGING 09:53 | PROVIDERS: ATTEND Thoracic Surgery (Cardiothoracic Vascular Surgery) | DX: Z48.812 Encounter for surgical aftercare following surgery on the circulatory system (principal); Z95.1 Presence of aortocoronary bypass graft; J98.11 Atelectasis; M47.894 Other spondylosis, thoracic region ==